=== PATIENT | female | born 1995 | race Caucasian/White ===

== ENCOUNTER 2021-04-04 07:01 | Emergency (ER) | payer OTHER, MEDICAID, SELFPAY ==
[2021-04-04 07:15] VITALS: BP 175/112; PULSE 119; RESP 18; O2SAT 99
--- NOTE | 2021-04-04 07:51 | ED_ITS ---
HPI - Psych General Chief Complaint: Psychiatric Symptoms Stated Complaint: mental health problem Time Seen by Provider: 04/04/21 07:36 Source: patient and other (Boyfriend) Mode of arrival: Ambulatory History of Present Illness HPI Narrative: This is a 26-year-old female who presents with her boyfriend for concern for mental health issues. Patient has difficulty expressing herself with somewhat tangential speech, she is able to speak clearly but has difficulty straightening her thoughts together. Patient does not have any slurring. Her boyfriend states that she had an episode knee about a week ago which she endorses and at that time she started to become more and more up and down in terms of her moods. She can be very high or very low with crying jags. Patient does not endorse any suicidal thought or intention or any homicidal thoughts. Boyfriend states she has had very pressured racing speech. He states she has been telling him to look into her eyes and very focused on internal combustion as well as if she may be . He states that many of her statements do not make sense. He does not believe she slept for the last 2 or 3 these. Patient states she is unsure if she has had any sleep but does not think so. She uses tobacco, she used to use alcohol heavily but quit past and had a relapse about 2 months ago but according to her and her boyfriend is not actively using at this time. She uses marijuana but they both deny any other recreational drugs. Patient does take trazodone for sleep she is unsure if she has taken it recently. She may have taken 1 of her boyfriend's Seroquel but unclear if she h as she is unsure if she may or may not have. Patient according to her and her boyfriend have not had similar symptoms like this in the past. She has had anxiety but no other mental health diagnoses. She does not have any other known medical issues. Patient is agreeable to tried medication to see if this is helpful to her. Related Data Allergies Allergy/AdvReac Type Severity Reaction Status Date / Time No Known Drug Allergies Allergy Verified 04/04/21 09:42 Review of Systems Review of Systems ROS Unobtainable: All systems reviewed & are unremarkable except as noted in HPI and below Patient History Social History Smoking Status: Current every day smoker additional social history: SUBSTANCE USE HISTORY - Tobacco: Daily smoker - Alcohol: The patient's mother reports a history of alcohol abuse in the past, recent history is unclear - Drugs: The patient to be does apparently have a past history of use of ecstasy and mushrooms when she was an adolescent, or in her early 20s, but patient, mother, and boyfriend all deny that she currently uses any drugs except for marijuana. DEVELOPMENTAL AND SOCIAL HISTORY - Family Constellation/Environment: Patient was [place] in this region and patient's mother notes a generally unremarkable childhood. - Childhood Trauma: No apparent history of physical or sexual abuse or witnessing violence. - Developmental milestones: The patient reached normal developmental milestones. - Education: The patient was an adequate student in school and graduated from high school. - Employment: The patient has been employed regularly in the last several years and was recently changing jobs. - Relationships: Patient has been in a long-term relationship with her current boyfriend - Current Living: Patient her boyfriend currently live on [facility]. - Support: Income from employment. - Legal: No current legal difficulties. HISTORY - None. - Deployments: N/A - Combat Exposure: N/A - Blast Exposure: N/A SIGNIFICANT MEDICAL HISTORY PCP: Unknown - Allergies: NKDA - Medical Problems: None known - Current Medications: See list above. - Herbals/Supplements: None. Smoking Status: Current every day smoker Substance Use Type: marijuana Exam Narrative Exam Narrative: GEN: well nourished, well appearing female, alert and oriented, patient appears to be in mild distress. Patient laughs inappropriate times. She does attempt to answer questions but has difficulty. Cooperative. HEENT: Atraumatic, pupils are equal round reactive to light, extraocular movements are intact, nares are clear, throat is clear without any exudates, erythema, tonsillar enlargement or uvular deviation, no facial droop. HEART: Regular rate and rhythm without murmur, clicks, rubs. Pulses are equal in upper and lower extremities LUNGS:Lungs clear to auscultation, no wheezes, rales, crackles, chest moves symmetrically ABD:bowel sounds normal, soft, non-tender, no guarding, rebound, rigidity, no masses noted, no hepatosplenomegaly :No CVA tenderness MSCL: Non-tender, no muscle atrophy, muscles strength 5/5 upper and lower extremities, full range of motion NEURO:CN 2-12 intact, sensation normal, reflexes 2/4 upper and lower extremitie s. Normal gait. No dysarthria. SKIN: Rash, erythema or other skin changes noted. PSYCH: Patient does not endorse any suicidal homicidal ideation. She denies hallucinations although her boyfriend does state that she has at times will stare intently at lytes. Both patient and state that she had a recent hip knee, that she has had pressure speech as well as very high and very low mood intermittently and describes it as cycling very quickly over minutes. Initial Vital Signs Initial Vital Signs: Vital Signs Pulse Rate 119 H 04/04/21 07:15 Respiratory Rate 18 04/04/21 07:15 Blood Pressure 175/112 H 04/04/21 07:15 Pulse Oximetry 99 04/04/21 07:15 Course Orders Ordered: ED Orders 04/04/21 13:47 COVID19 -Nasal swab/Pre-Proc Stat Discontinued Medications Nicotine (Nicotine 21 Mg Patch) 21 mg TOP NOW ONE Stop: 04/04/21 10:50 Last Admin: 04/04/21 10:56 Dose: 21 mg Documented by: RAMYA Olanzapine (Olanzapine Odt 10 Mg Tab) 10 mg PO NOW ONE Stop: 04/04/21 08:40 Last Admin: 04/04/21 08:47 Dose: 10 mg Documented by: RAMYA Olanzapine (Olanzapine Odt 10 Mg Tab) 10 mg PO NOW ONE Stop: 04/04/21 12:57 Last Admin: 04/04/21 13:34 Dose: 10 mg Documented by: FAB Olanzapine (Olanzapine Odt 10 Mg Tab) 10 mg PO NOW ONE Stop: 04/04/21 15:01 Last Admin: 04/04/21 15:08 Dose: 10 mg Documented by: FAB Reevaluation(s) Reevaluation #1: Patient somewhat improved speech is more fluent but she still having considered symptoms we did review her head CT and lab work today with her as well as her boyfriend who is at bedside. Time: 10:50 Reevaluation #2: patient seen by Dr. Blake from psychiatry and agree patient needs hospitalization for bipolar. He recommends trying an additional dose of zyprexa, patient did not take the first two but after discussion with patient she took the third and swallowed it. Patient has tried to leave but unclear if she has intentionally trying to leave or is disoriented. She has been mostly redirectable. Family at bedside particularly her boyfriend helps to keep the patient calm. Time: 15:03 Vital Signs Vital signs: Vital Signs - 8 hr 04/04/21 17:45 Pulse Rate 126 H Respiratory Rate 19 Blood Pressure 143/102 H Pulse Oximetry 97 MDM - Psych Lab Data Attestation: I reviewed the patient's lab results. Result diagrams: 04/04/21 08:12 04/04/21 08:12 Labs: Lab Results 04/04/21 04/04/21 04/04/21 Range/Units 07:30 08:12 08:12 WBC 9.7 (4.5-11.0) X10^3/uL RBC 4.44 (4.0-5.2) X10^6/uL Hgb 14.2 (12.0-16.0) g/dL Hct 41.7 (36-46) % MCV 93.9 (80-100) fL MCH 32.1 (26-34) PG MCHC 34.1 (30-36) % RDW 12.7 (11.6-14.8) % Plt Count 307 (150-400) X10^3/uL Neut % (Auto) 67.5 (50-75) % Lymph % (Auto) 20.6 L (25-40) % [place] % (Auto) 9.8 (3-14) % Eos % (Auto) 1.2 L (2-4) % Baso % (Auto) 0.9 (0-2) % Neut # (Auto) 6500 (5934-1731) /uL Lymph # (Auto) 2000 (0802-2465) /uL [place] # (Auto) 900 (0-900) /uL Eos # (Auto) 100 (0-450) /uL Baso # (Auto) 100 (0-100) /uL Sodium 137 (137-145) mmol/L Potassium 3.7 (3.4-5.1) mmol/L Chloride 102 (98-107) mmol/L Carbon Dioxide 24 (22-32) mmol/L BUN 7 (7-17) mg/dL Creatinine 0.56 (0.52-1.04) mg/dL Estimated GFR > 60.0 (>60) mL/min BUN/Creatinine Ratio 12.5 (6-22) Glucose 108 H (70-100) mg/dL Calcium 10.2 (8.4-10.2) mg/dL Total Bilirubin 0.5 (0.2-1.3) mg/dL AST 27 (14-36) IU/L ALT 17 (<35) IU/L Alkaline Phosphatase 73 (38-126) U/L Total Protein 8.7 H (6.3-8.2) g/dL Albumin 5.1 H (3.5-5.0) g/dL Globulin 3.6 (1.7-4.1) g/dL Albumin/Globulin Ratio 1.4 (1.0-2.8) TSH (0.47-4.68) uIU/mL Salicylates < 1.0 (<20) mg/dL U Opiates 300ng/mL cut Negative (Negative) Ur Oxycodone Screen Negative (Negative) Urine Methadone Screen Negative (Negative) Acetaminophen < 10 L (10-30) ug/mL Ur Barbiturates Screen Negative (Negative) U Tricyclic Antidepress Positive H (Negative) Ur Phencyclidine Scrn Negative (Negative) Ur Amphetamines Screen Negative (Negative) U Methamphetamines Scrn Negative (Negative) Ur MDMA Scrn (Ecstasy) Negative (Negative) U Benzodiazepines Scrn Negative (Negative) Urine Cocaine Screen Negative (Negative) U Marijuana (THC) Screen Positive H (Negative) Ethyl Alcohol < 10 ( - 10) mg/dL SARS-CoV-2 (PCR) (Negative) 04/04/21 04/04/21 Range/Units 08:12 13:47 WBC (4.5-11.0) X10^3/uL RBC (4.0-5.2) X10^6/uL Hgb (12.0-16.0) g/dL Hct (36-46) % MCV (80-100) fL MCH (26-34) PG MCHC (30-36) % RDW (11.6-14.8) % Plt Count (150-400) X10^3/uL Neut % (Auto) (50-75) % Lymph % (Auto) (25-40) % [place] % (Auto) (3-14) % Eos % (Auto) (2-4) % Baso % (Auto) (0-2) % Neut # (Auto) (5660-9455) /uL Lymph # (Auto) (5847-4910) /uL [place] # (Auto) (0-900) /uL Eos # (Auto) (0-450) /uL Baso # (Auto) (0-100) /uL Sodium (137-145) mmol/L Potassium (3.4-5.1) mmol/L Chloride (98-107) mmol/L Carbon Dioxide (22-32) mmol/L BUN (7-17) mg/dL Creatinine (0.52-1.04) mg/dL Estimated GFR (>60) mL/min BUN/Creatinine Ratio (6-22) Glucose (70-100) mg/dL Calcium (8.4-10.2) mg/dL Total Bilirubin (0.2-1.3) mg/dL AST (14-36) IU/L ALT (<35) IU/L Alkaline Phosphatase (38-126) U/L Total Protein (6.3-8.2) g/dL Albumin (3.5-5.0) g/dL Globulin (1.7-4.1) g/dL Albumin/Globulin Ratio (1.0-2.8) TSH 1.51 (0.47-4.68) uIU/mL Salicylates (<20) mg/dL U Opiates 300ng/mL cut (Negative) Ur Oxycodone Screen (Negative) Urine Methadone Screen (Negative) Acetaminophen (10-30) ug/mL Ur Barbiturates Screen (Negative) U Tricyclic Antidepress (Negative) Ur Phencyclidine Scrn (Negative) Ur Amphetamines Screen (Negative) U Methamphetamines Scrn (Negative) Ur MDMA Scrn (Ecstasy) (Negative) U Benzodiazepines Scrn (Negative) Urine Cocaine Screen (Negative) U Marijuana (THC) Screen (Negative) Ethyl Alcohol ( - 10) mg/dL SARS-CoV-2 (PCR) Negative (Negative) Point of Care Testing Test Results Negative Urine Dip Bedside Urine Glucose Negative Bedside Urine Bilirubin - Negative Bedside Urine Ketone +++ 80 Urine Specific [place] 1.030 Bedside Urine Occult Blood +/- Bedside Urine pH 6.0 Bedside Urine Protein +/- 15 Bedside Urine Urobilinogen - Negative Bedside Urine Nitrite - Negative Bedside Urine Leukocytes - Negative Esterase Imaging Data CT scan - head: Radiologist's Impression: [address] [id number] Scan ReportSigned Patient: Zohreh StreetR#: [id number]: 1995Acct:[id number]/Sex: 26 / FDate of Service: 04/04/21Loc: EDAccession Number: [id number] Procedure: CT head/brain wo con Ordering Provider: Giovanna Suttno D.O. PROCEDURE: CT HEAD/BRAIN WO CON INDICATIONS: new onset bipolar type symptoms, no sleep TECHNIQUE: Noncontrast 4.5 mm thick angled axial sections acquired from the foramen magnum to the vertex, with coronal and sagittal reformats. For radiation dose reduction, the following was used: automated exposure control, adjustment of mA and/or kV according to patient size. COMPARISON: None. FINDINGS: Image quality: Excellent. CSF spaces: Basal cisterns are patent. No extra-axial fluid collections. Ventricles are normal in size and shape. Brain: No midline shift. No intracranial masses or hemorrhage. Marie-white matter interface is normal. Skull and face: Calvarium and visualized facial bones are intact, without suspicious lesions. Sinuses: Visualized sinuses and mastoids are clear. IMPRESSION: 1. No acute intracranial abnormalities. Dictated by: Haroldo Miller M.D. on 04/04/2021 at 8:56 Approved by: Haroldo Miller M.D. on 04/04/2021 at 8:58 [facility] Narrative Medical decision making narrative: 26-year-old female with seems to be in acutely psychotic episode. Patient has not had a prior history. Head CT was obtained because of this which was negative. Patient's labs do not show acute changes. Her UDS is positive for trace sick lips which is consistent with her history of trazodone. And THC. Patient does have a history of anxiety but no other known mental health diagnoses. She appears to be gravely disabled and was evaluated by our psychosocial rehabilitation counselor, Dr. Blake from outpatient psychiatry and the DCR who felt patient was appropriate for placement. Patient did ultimately taken oral Zyprexa, she had spit out the initial doses. She has been redirectable during her stay here in the emergency department. Patient signed out to Dr. Gomez while awaiting final disposition. Discharge Plan Departure Clinical Impression: Acute psychosis
[2021-04-04 07:54] LABS: UR Morphine/Opiate cutoff 300 Negative (Negative); Ur Creatinine Normal (Normal); Ur Specific Gravity Normal (Normal); Urine Amphetamines Negative (Negative); Urine Barbiturates Negative (Negative); Urine Benzodiazepines Negative (Negative); Urine Cocaine Negative (Negative); Urine MDMA Negative (Negative); Urine Methadone Negative (Negative); Urine Methamphetamines Negative (Negative); Urine Phencyclidine Negative (Negative); Urine Tetrahydrocannabinol Positive (Negative); Urine pH Normal (Normal)
[2021-04-04 07:55] LABS: Urine Oxycodone Negative (Negative); Urine Tricyclic Antidepressant Positive (Negative)
[2021-04-04 08:19] LABS: Add Manual Diff / Slide Review NO; Basophils Absolute Auto 100 /uL (0-100); Basophils Percent Auto 0.9 % (0-2); Eosinophils Absolute Auto 100 /uL (0-450); Eosinophils Percent Auto 1.2 % (2-4); Hematocrit 41.7 % (36-46); Hemoglobin 14.2 g/dL (12.0-16.0); Lymphocytes Absolute Auto 2000 /uL (1100-4500); Lymphocytes Percent Auto 20.6 % (25-40); Mean Corpuscular HGB Conc 34.1 % (30-36); Mean Corpuscular Hemoglobin 32.1 PG (26-34); Mean Corpuscular Volume 93.9 fL (80-100); Monocytes Absolute Auto 900 /uL (0-900); Monocytes Percent Auto 9.8 % (3-14); Neutrophils Absolute Auto 6500 /uL (1500-7000); Neutrophils Percent Auto 67.5 % (50-75); Platelet Count 307 X10^3/uL (150-400); Red Blood Cell Count 4.44 X10^6/uL (4.0-5.2); Red Cell Distribution Width 12.7 % (11.6-14.8); White Blood Cell Count 9.7 X10^3/uL (4.5-11.0)
[2021-04-04 08:33] LABS: Acetaminophen < 10 ug/mL (10-30); Alanine Aminotransferase 17 IU/L (<35); Albumin 5.1 g/dL (3.5-5.0); Albumin Globulin Ratio 1.4 (1.0-2.8); Alkaline Phosphatase 73 U/L (38-126); Aspartate Aminotransferase 27 IU/L (14-36); BUN Creatinine Ratio 12.5 (6-22); Bilirubin Total 0.5 mg/dL (0.2-1.3); Blood Urea Nitrogen 7 mg/dL (7-17); Calcium 10.2 mg/dL (8.4-10.2); Carbon Dioxide 24 mmol/L (22-32); Chloride 102 mmol/L (98-107); Estimated Glomerular Filt Rate > 60.0 mL/min (>60); Ethanol (ETOH) < 10 mg/dL; Globulin 3.6 g/dL (1.7-4.1); Glucose 108 mg/dL (70-100); HEMOLYSIS < 15 (0-50); Potassium 3.7 mmol/L (3.4-5.1); Salicylate < 1.0 mg/dL (<20); Sodium 137 mmol/L (137-145); Total Protein 8.7 g/dL (6.3-8.2)
--- NOTE | 2021-04-04 08:33 | DI.CT.S_ITS ---
PROCEDURE: CT HEAD/BRAIN WO CON INDICATIONS: new onset bipolar type symptoms, no sleep TECHNIQUE: Noncontrast 4.5 mm thick angled axial sections acquired from the foramen magnum to the vertex, with coronal and sagittal reformats. For radiation dose reduction, the following was used: automated exposure control, adjustment of mA and/or kV according to patient size. COMPARISON: None. FINDINGS: Image quality: Excellent. CSF spaces: Basal cisterns are patent. No extra-axial fluid collections. Ventricles are normal in size and shape. Brain: No midline shift. No intracranial masses or hemorrhage. Marie-white matter interface is normal. Skull and face: Calvarium and visualized facial bones are intact, without suspicious lesions. Sinuses: Visualized sinuses and mastoids are clear. IMPRESSION: 1. No acute intracranial abnormalities. Dictated by: Haroldo Miller M.D. on 04/04/2021 at 8:56 Approved by: Haroldo Miller M.D. on 04/04/2021 at 8:58
[2021-04-04] MEDS: OLANZapine ODT 10 MG TAB PO ×3 (08:47→15:08)
[2021-04-04 09:18] LABS: TSH w/ Reflex to FT4 1.51 uIU/mL (0.47-4.68)
[2021-04-04] MEDS: NICOTINE 21 MG PATCH TOP (10:56)
--- NOTE | 2021-04-04 12:34 | CM.SWNOTE ---
COOKER TENDER Assessment COOKER TENDER - Steel Erector Assessment COOKER TENDER - Steel Erector Assessment Time Spent with Patient Start date 04/04/21 Visit Start Time 11:35 End date 04/04/21 Visit End Time 12:00 Total time Care Management spent on 25 patient visit-in minutes Mental Health Screening Include Onset, Duration, Intensity Presenting Problem Patient presents to this ED brought in by timmyiend due to his concerns for patient's mental health. Patient states she is here because she thinks she is , needs and wants to be . Precipitating Event(s) Patient states no memory of recent events. Boyfriend states that patient has been off for 4-5 days stating that she said she had an epiphany and states that she is not sleeping, always on the phone, high on life and not making sense. Boyfriend states that last night patient wet the bed and spiraled out of control, switching from sobbing to laughing. Boyfriend states that patient asked boyfriend to look into her eyes or she would spontaneously combust. Patient Strengths Patient is receptive to supports Current Behavioral Health Provider(s) Patient denies any current MH Include Facility, Provider, Ph. # providers but would like them eventually. Psych. Hx Mental Health and Chemical Patient has no hx of MH dx. Dependency Patient smokes tobacco, patient used to use alcohol heavily and relapsed 2 months ago but denies current use. Patient positive for THC and tricyclic Antidepressants at presentation to this ED. Family Hx of Behavioral Abuse None reported Psychiatric Hospitalizations (date(s)/ None reported location) Psychosocial information & Support Patient is 26 y/o female who Systems currently resides on [facility]. Patient has support of mother and boyfriend. Boyfriend reports that patient quit her job a few weeks ago and they recently moved from [place]. School/Work Patient is currently employed Legal Concerns Legal Matters - Outstanding Issues None reported Mental Status Orientation (Person/Place/Time) A/Ox 4 in mild distress Stated Mood fine Affect (Congruent with Mood?) euphoric, labile, congruent with mood Thought Content - Specify/Describe Patient denies obsessions, Obsessions, Delusions, Hallucinations delusions and hallucinations. Boyfriend reports patient has been obsessing about calling people during the night hours and thinking she will spontaneously combust Thought Processes (Forsvcq-Xbnvagte-Kplj Tangential Untcscvj-Ckgglyvc-Lyrqimgmti- Zdspadguweergf-Anozvzn-Pdovezigvhmz- Thought Blocking) Speech (Hxlhlv-Xjpv-Annriwq-Rapid-Soft- Slow, quiet, pressured Loud-Pressured) Motor (Lfqbwb-Kbukznmbs-Qira-Other) Not formally assessed. Patient has both arms under blanket and has limited movement. Insight (Lgpa-Dwbp-Lwau/Limited) Poor/Limited Judgement (Tfyu-Rhgg-Yyuc/Limited) Poor/Limited Impulse Control (Adequate-Impaired) Adequate during assessment, poor per boyfriend's report regarding last evening. Memory (Spxzixlge-Lezmor-Oyznba, Impaired, patient cannot Impaired-Intact) recall why boyfriend brought patient to this ED. Concentration (Intact-Impaired) Somewhat intact Attention (Intact-Impaired) Somewhat intact Behavior (Appropriate-Inappropriate) Appropriate. Patient would laugh at times throughout interview when boyfriend was present and not make sense. Risk Assessment Suicidal Ideation (Plan) No Homicidal Ideation (Plan) No Comment Patient denies SI and HI. Intervention Intervention COOKER TENDER meets with patient. Patient states she is present at this ED due to her wanting, needing and thoughts of supposed to being . Boyfriend later presents to room and states that patient is present to this ED due to concern for mental health and altered mental state. Boyfriend reports patient's recent behavior of sobbing then laughing and labile moods . Boyfriend endorses that this behavior started about 5 days ago when patient was in a state of tika had an epiphany and was high on life. When COOKER TENDER asks patient about what boyfriend reported, patient does not recall and states colors got misunderstood. COOKER TENDER discusses inpatient hospitalization with patient and boyfriend. Patient is agreeable to voluntary inpatient. It is the opinion of this COOKER TENDER that patient is gravely disabled and is in need of inpatient behavioral health hospitalization. COOKER TENDER reviews the above with ED provider Dr. Sutton and she indicates agreement and understanding. COOKER TENDER discusses consult with Psychiatry and Dr. Sutton is in agreement. Plan RA Plan COOKER TENDER to seek inpatient beds when patient is medically stable. COOKIE [place]
--- NOTE | 2021-04-04 13:40 | PC.NURSE ---
Pt spit out Zyprexa. notified.
[2021-04-04 14:04] LABS: COVID19 -Nasal RAPID Negative (Negative)
--- NOTE | 2021-04-04 14:09 | PC.NURSE ---
pt was being aggressive pt tried to push her Mother and pt said to her (dont touch me) pt tried to get my attention for help. I went to the room and talked to the pt and tried to calm pt down.
--- NOTE | 2021-04-04 14:13 | PC.NURSE ---
14:13 pt drank water and spit it out jumped on the bed at the same time. Went to the room and asks whats going on pt came to me hysterically, hold my hands and said help me. I asked the pt again whats going on,pt said (are they poisoning me?
--- NOTE | 2021-04-04 14:38 | PC.NURSE ---
MD Blake in room with patient. Trying to get ahold of pt mom to let her know.
--- NOTE | 2021-04-04 15:27 | PC.NURSE ---
Pt upset while talking with MD Blake with Mom present in room. [place] her saying can someone help me in here? Two RNs in room to talk with pt and attempt to calm. MD Blake and Mom stepped out to continue talking in hallway. Pt states do you understand Sydnie and Gray are one person?? We are connected on a level not of this world. Reassured pt she was safe at the hospital and we are here to help. Significant other Gray showed up and pt became much more calm. Able to talk with pt and administer Zyprexa with him in room. Pt swallowed pill without issue. She talked with Gray/stated, Well I spit out the other two. I couldn't stop myself. Mom stepped out to get food for her from the cafeteria.
--- NOTE | 2021-04-04 16:05 | PC.NURSE ---
at 1400 pt was walking to the restroom and when she got in front of the door she stepped back quickly, then started walking backwards, the door to the main lobato (out of the ED) opened and she ran out. she only go about 10ft when her mother caught her and brought her back in. the pt seemed calm and followed her moms directions. 1415 pt asked me to come in the room, I did, i sat near the bed, she leaned up and whispered will you put your finger in my vagina and check for blood i said no, she then said i'm worried about the baby i reminded her that she is not . about 1430 Dr Blake was at bedside.
--- NOTE | 2021-04-04 16:15 | CM.SWNOTE ---
Addendum entered by Toyin Watkins 04/04/21 18:39: Psychiatrist Dr. Blake completed Psychiatry consult report with dx of Bipolar - most recent episode manic with psychotic features. Dr. Blake recommends DCR evaluation for involuntary hold and pyschiatric admission and rx of olanzapine 5-10 mg b.i.d to address psychotic and manic symptoms. Prior to meeting with DCR patient was not oriented as to why she was at the hospital, what was going and thought her mother was the devil or her boyfriend's mother. Patient was given 10 mg of Olanzapine at 15:08 and RN witnessed patient take medication, previously at 8:47 and 13:34, patient spit out medication. Patient met with JSOEF Brown via video at about 1800 for evaluation, also present is patient's mother. Patient presents as lucid and communicative but confused about what took place today and why she presents at this hospital. DCR recommends patient be prescribed Olanzapine for a week at d/c from hospital, patient seek outpatient services and family to monitor patient's safety and return patient to ED if symptoms worsen. RAILROAD CAR LETTERER calls and leaves for Psychiatrist Dr. Blake regarding f/u with patient, requesting return call. RAILROAD CAR LETTERER will identify providers that take patient's insurance and provide to patient and mother. Plan: patient to d/c with outpatient support, family safety planning and rx. Toyin Watkins, COOKIE Original Note: RAILROAD CAR LETTERER Note RAILROAD CAR LETTERER calls [facility] and they will review clinicals for voluntary inpatient. At 1335 RAILROAD CAR LETTERER meets with patient's mother Srinivas, mother reports these behaviors and symptoms have been occuring her whole life. Mother is thankful for inpatient treatment for patient and for Psych eval. Per RN Kristen, Patient is paranoid, concerns for being watching, patient spit out zyprexa medication twice. [facility] asks to speak with patient, patient denies and [place] reports they will not accept patient voluntarily but would accept patient involuntary due to patient's labile mood, tangential communication and disorganized thoughts RAILROAD CAR LETTERER contacts [facility] for dispatch, Dr. Blake meets with patient. Dr. Blake recommends DCR, ziprexa medication and determines bipolar dx. discusses patient with patient's partner and mother. Mother reports that patient is not eating what she is served at hospital and plans to get patient some thing like mashed potatoes that she would eat. Plan: f/u with [facility] dispatch for involuntary inpatient at [facility] COOKIE [place]
--- NOTE | 2021-04-04 16:17 | P.CONS_ITS ---
History of Present Illness Consult details Date Patient Seen: 04/04/21 Time Patient Seen: 14:30 Chief complaint: mental health problem Reason for consult: Disorganized behavior Requesting provider: Giovanna Sutton Narrative: REFERRAL INFORMATION This is the first psychiatric evaluation for this 26-year-old female referred by the emergency department for evaluation of possible bipolar disorder. RECORDS REVIEW The patient?s referral documents, medical records and intake questionnaire were reviewed as part of this evaluation. I also spoke with the patient's mother and the patient's boyfriend who provided collateral information. CHIEF COMPLAINT ?I think Gray broke my brain.? HISTORY OF PRESENT ILLNESS The patient was in her usual state of fairly good health until about for 5 days ago when she began to have difficulty with fairly significant work stress related to stopping 1 job in starting another 1. Her boyfriend reports that she became very anxious about her situation at work and then began to have difficulty sleeping to the point that she may have been awake all night for the last 2-3 nights. During this time, she also became more agitated, initiated increase in goal-directed behavior, and after awhile had difficulty making sense when she spoke. He became concerned after she once again failed to sleep last night and early this morning became bizarrely incoherent. He brought her into the emergency department for further evaluation and treatment. The patient is unable to articulate a coherent chief complaint or history. She claims that she is and that she wants, ?a doctor to show me blood on their finger? in order to prove to her that she is not . She is not receptive to the fact that blood tests and examination revealed that she is not . She cannot coherently relate any history about the last several days and any attempts to get any kind of past history resulting in responses that are bizarre and make no sense. At 1 point, the patient attempted to leave the [facility] department and needed to be physically redirected to go back to the [facility] and her bed. She speaks with intensity to various staff members. She does not appear to be responding to hallucinations, but at times it appears that she is having difficulty articulating numerous thoughts running through her head. The patient's mother also reports that she has not been eating recently and may have lost weight. The patient, her mother, and her boyfriend all deny that she has been using any sort of drugs recently. The patient denies any suicidal ideation, intent, or plan. The patient denies any homicidal ideation, intent, or plan. The patient cannot respond coherently to questions regarding specific symptoms of depression, anxiety, psychosis, tika, or PTSD or recent history of trauma. PAST PSYCHIATRIC HISTORY - Diagnoses: No prior psychiatric history - Inpatient: None. - Outpatient: None. - Suicide Attempts: None. PREVIOUS PSYCHIATRIC MEDICATION TRIALS The patient has no prior history of psychotropic medication treatment. CURRENT PSYCHOTROPIC MEDICATIONS May have taken 1 dose of boyfriend's quetiapine prescription but is currently taking no psychotropic medications. FAMILY HISTORY - Maternal: None known - Paternal: May have a history of depression and possible bipolar disorder in extended relatives - Siblings: None known Meds Home Medications and Allergies Allergies Allergy/AdvReac Type Severity Reaction Status Date / Time No Known Drug Allergies Allergy Verified 04/04/21 09:42 Review of Systems Review of Systems ROS: Yes unobtainable due to mental condition Psychiatric Psychiatric: Reports as per HPI Exam Vital Signs (past 8 hours): Oxygen Delivery Method Room Air Narrative Exam Narrative: MENTAL STATUS EXAM * Appearance: Patient is very slender female seen initially reclining in her gurney in her room in the emergency department. * Grooming: The patient is dressed in casual clothing and appears mildly disheveled but otherwise adequately groomed. * Behavior: The patient is somewhat agitated and easily upset. She became markedly more agitated when her mother into the room and we attempted to obtain history from her. * Gait: Gait was unimpaired when the patient got up and attempted to walk out of the emergency department. * Speech: Normal rate, volume, and westley for the most part, but became quite agitated and loud when upset. * Mood: ?I am broken? * Affect: Intense, often agitated, moderately dysphoric. Congruent with content, restricted range and affect. * Thought Process: Extremely tangential * Thought Content: Denies suicidal ideation, denies homicidal ideation, intent or plan; and thee was no evidence of a formal thought or perceptual distur bance. * Attention: Nominally attentive to interview, and extremely distractible * Orientation: Oriented to person, place, time, and circumstance * Memory: Unable to be tested * Insight: Poor * Judgment: Poor Objective Labs Result Diagrams: 04/04/21 08:12 04/04/21 08:12 Labs: Laboratory Results - last 24 hr 04/04/21 04/04/21 04/04/21 07:30 08:12 08:12 WBC 9.7 RBC 4.44 Hgb 14.2 Hct 41.7 MCV 93.9 MCH 32.1 MCHC 34.1 RDW 12.7 Plt Count 307 Neut % (Auto) 67.5 Lymph % (Auto) 20.6 L Garrett % (Auto) 9.8 Eos % (Auto) 1.2 L Baso % (Auto) 0.9 Neut # (Auto) 6500 Lymph # (Auto) 2000 Garrett # (Auto) 900 Eos # (Auto) 100 Baso # (Auto) 100 Sodium 137 Potassium 3.7 Chloride 102 Carbon Dioxide 24 BUN 7 Creatinine 0.56 Estimated GFR > 60.0 BUN/Creatinine Ratio 12.5 Glucose 108 H Calcium 10.2 Total Bilirubin 0.5 AST 27 ALT 17 Alkaline Phosphatase 73 Total Protein 8.7 H Albumin 5.1 H Globulin 3.6 Albumin/Globulin Ratio 1.4 TSH Salicylates < 1.0 U Opiates 300ng/mL cut Negative Ur Oxycodone Screen Negative Urine Methadone Screen Negative Acetaminophen < 10 L Ur Barbiturates Screen Negative U Tricyclic Antidepress Positive H Ur Phencyclidine Scrn Negative Ur Amphetamines Screen Negative U Methamphetamines Scrn Negative Ur MDMA Scrn (Ecstasy) Negative U Benzodiazepines Scrn Negative Urine Cocaine Screen Negative U Marijuana (THC) Screen Positive H Ethyl Alcohol < 10 SARS-CoV-2 (PCR) 04/04/21 04/04/21 08:12 13:47 WBC RBC Hgb Hct MCV MCH MCHC RDW Plt Count Neut % (Auto) Lymph % (Auto) Garrett % (Auto) Eos % (Auto) Baso % (Auto) Neut # (Auto) Lymph # (Auto) Garrett # (Auto) Eos # (Auto) Baso # (Auto) Sodium Potassium Chloride Carbon Dioxide BUN Creatinine Estimated GFR BUN/Creatinine Ratio Glucose Calcium Total Bilirubin AST ALT Alkaline Phosphatase Total Protein Albumin Globulin Albumin/Globulin Ratio TSH 1.51 Salicylates U Opiates 300ng/mL cut Ur Oxycodone Screen Urine Methadone Screen Acetaminophen Ur Barbiturates Screen U Tricyclic Antidepress Ur Phencyclidine Scrn Ur Amphetamines Screen U Methamphetamines Scrn Ur MDMA Scrn (Ecstasy) U Benzodiazepines Scrn Urine Cocaine Screen U Marijuana (THC) Screen Ethyl Alcohol SARS-CoV-2 (PCR) Negative Assessment & Plan Assessment and plan (1) Bipolar disorder: Qualifiers: Active/Remission status: currently active Current bipolar episode type: manic Current episode severity: severe Psychotic features: with psychotic features Qualified Code(s): F31.2 - Bipolar disorder, current episode manic severe with psychotic features Status: Acute Assessment & Plan narrative: ASSESSMENT/MEDICAL DECISION MAKING Zohreh Street is a 26-year-old female who presented to the emergency department after 4-5 days of decreased sleep, increasing goal-directed activity, bizarre delusions, possible racing thoughts, inability to articulate thoughts coherently, inappropriate poor judgment, and distractibility. And unknown substance intoxication and 1st psychotic break are also in the differential, but in the absence of any positive drug screen (other than marijuana) the patient's presentation appears to be consistent with a manic episode. DIAGNOSES/PROBLEMS Bipolar disorder most recent episode manic with psychotic features Recommendations 1. Given the patient's delusion that she is and may be experiencing a miscarriage, I am concerned about possible delusion driven self-injurious behavior. Therefore, I recommend the DCR be notified to evaluate the patient for an involuntary hold and psychiatric admission. 2. Recommend olanzapine 5-10 mg p.o. b.i.d. targeting psychotic and manic symptoms. Time Spent With Patient Time with patient: Greater than 35 minutes
--- NOTE | 2021-04-04 16:43 | PC.NURSE ---
Pt. was unaware of location or who she was, am I my boyfriend? Did his mind take over mine?. Mom had left for coffee.
[2021-04-04 17:45] VITALS: BP 143/102; PULSE 126; RESP 19; O2SAT 97
--- NOTE | 2021-04-04 18:50 | ED.PSYCH ---
HPI - Psych General Chief Complaint: Psychiatric Symptoms Stated Complaint: mental health problem Time Seen by Provider: 04/04/21 07:36 Source: patient and other (Boyfriend) Mode of arrival: Ambulatory Related Data Previous Rx's Medication Instructions Recorded olanzapine [Zyprexa] 5 mg PO QPM #10 tab 04/04/21 Allergies Allergy/AdvReac Type Severity Reaction Status Date / Time No Known Drug Allergies Allergy Verified 04/04/21 09:42 Patient History Family History (Updated 04/04/21 @ 19:26 by Jayna Martinez RN) Family/Other Bipolar 1 disorder, depressed Social History Smoking Status: Current every day smoker additional social history: SUBSTANCE USE HISTORY - Tobacco: Daily smoker - Alcohol: The patient's mother reports a history of alcohol abuse in the past, recent history is unclear - Drugs: The patient to be does apparently have a past history of use of ecstasy and mushrooms when she was an adolescent, or in her early 20s, but patient, mother, and boyfriend all deny that she currently uses any drugs except for marijuana. DEVELOPMENTAL AND SOCIAL HISTORY - Family Constellation/Environment: Patient was [place] in [place] region and patient's mother notes a generally unremarkable childhood. - Childhood Trauma: No apparent history of physical or sexual abuse or witnessing violence. - Developmental milestones: The patient reached normal developmental milestones. - Education: The patient was an adequate student in school and graduated from high school. - Employment: The patient has been employed regularly in the last several years and was recently changing jobs. - Relationships: Patient has been in a long-term relationship with her current boyfriend - Current Living: Patient her boyfriend currently live on [facility]. - Support: Income from employment. - Legal: No current legal difficulties. HISTORY - None. - Deployments: N/A - Combat Exposure: N/A - Blast Exposure: N/A SIGNIFICANT MEDICAL HISTORY PCP: Unknown - Allergies: NKDA - Medical Problems: None known - Current Medications: See list above. - Herbals/Supplements: None. Smoking Status: Current every day smoker Substance Use Type: marijuana Exam Initial Vital Signs Initial Vital Signs: Vital Signs Pulse Rate 119 H 04/04/21 07:15 Respiratory Rate 18 04/04/21 07:15 Blood Pressure 175/112 H 04/04/21 07:15 Pulse Oximetry 99 04/04/21 07:15 Course Orders Ordered: Discontinued Medications Nicotine (Nicotine 21 Mg Patch) 21 mg TOP NOW ONE Stop: 04/04/21 10:50 Last Admin: 04/04/21 10:56 Dose: 21 mg Documented by: RAMYA Olanzapine (Olanzapine Odt 10 Mg Tab) 10 mg PO NOW ONE Stop: 04/04/21 08:40 Last Admin: 04/04/21 08:47 Dose: 10 mg Documented by: RAMYA Olanzapine (Olanzapine Odt 10 Mg Tab) 10 mg PO NOW ONE Stop: 04/04/21 12:57 Last Admin: 04/04/21 13:34 Dose: 10 mg Documented by: FAB Olanzapine (Olanzapine Odt 10 Mg Tab) 10 mg PO NOW ONE Stop: 04/04/21 15:01 Last Admin: 04/04/21 15:08 Dose: 10 mg Documented by: AFB Vital Signs Vital signs: Vital Signs - 8 hr 04/04/21 17:45 Pulse Rate 126 H Respiratory Rate 19 Blood Pressure 143/102 H Pulse Oximetry 97 MDM - Psych Lab Data Result diagrams: 04/04/21 08:12 04/04/21 08:12 Labs: Lab Results 04/04/21 04/04/21 04/04/21 Range/Units 07:30 08:12 08:12 WBC 9.7 (4.5-11.0) X10^3/uL RBC 4.44 (4.0-5.2) X10^6/uL Hgb 14.2 (12.0-16.0) g/dL Hct 41.7 (36-46) % MCV 93.9 (80-100) fL MCH 32.1 (26-34) PG MCHC 34.1 (30-36) % RDW 12.7 (11.6-14.8) % Plt Count 307 (150-400) X10^3/uL Neut % (Auto) 67.5 (50-75) % Lymph % (Auto) 20.6 L (25-40) % Glascock % (Auto) 9.8 (3-14) % Eos % (Auto) 1.2 L (2-4) % Baso % (Auto) 0.9 (0-2) % Neut # (Auto) 6500 (8785-8367) /uL Lymph # (Auto) 2000 (6463-9189) /uL Glascock # (Auto) 900 (0-900) /uL Eos # (Auto) 100 (0-450) /uL Baso # (Auto) 100 (0-100) /uL Sodium 137 (137-145) mmol/L Potassium 3.7 (3.4-5.1) mmol/L Chloride 102 (98-107) mmol/L Carbon Dioxide 24 (22-32) mmol/L BUN 7 (7-17) mg/dL Creatinine 0.56 (0.52-1.04) mg/dL Estimated GFR > 60.0 (>60) mL/min BUN/Creatinine Ratio 12.5 (6-22) Glucose 108 H (70-100) mg/dL Calcium 10.2 (8.4-10.2) mg/dL Total Bilirubin 0.5 (0.2-1.3) mg/dL AST 27 (14-36) IU/L ALT 17 (<35) IU/L Alkaline Phosphatase 73 (38-126) U/L Total Protein 8.7 H (6.3-8.2) g/dL Albumin 5.1 H (3.5-5.0) g/dL Globulin 3.6 (1.7-4.1) g/dL Albumin/Globulin Ratio 1.4 (1.0-2.8) TSH (0.47-4.68) uIU/mL Salicylates < 1.0 (<20) mg/dL U Opiates 300ng/mL cut Negative (Negative) Ur Oxycodone Screen Negative (Negative) Urine Methadone Screen Negative (Negative) Acetaminophen < 10 L (10-30) ug/mL Ur Barbiturates Screen Negative (Negative) U Tricyclic Antidepress Positive H (Negative) Ur Phencyclidine Scrn Negative (Negative) Ur Amphetamines Screen Negative (Negative) U Methamphetamines Scrn Negative (Negative) Ur MDMA Scrn (Ecstasy) Negative (Negative) U Benzodiazepines Scrn Negative (Negative) Urine Cocaine Screen Negative (Negative) U Marijuana (THC) Screen Positive H (Negative) Ethyl Alcohol < 10 ( - 10) mg/dL SARS-CoV-2 (PCR) (Negative) 04/04/21 04/04/21 Range/Units 08:12 13:47 WBC (4.5-11.0) X10^3/uL RBC (4.0-5.2) X10^6/uL Hgb (12.0-16.0) g/dL Hct (36-46) % MCV (80-100) fL MCH (26-34) PG MCHC (30-36) % RDW (11.6-14.8) % Plt Count (150-400) X10^3/uL Neut % (Auto) (50-75) % Lymph % (Auto) (25-40) % Glascock % (Auto) (3-14) % Eos % (Auto) (2-4) % Baso % (Auto) (0-2) % Neut # (Auto) (3170-6262) /uL Lymph # (Auto) (0569-9613) /uL Glascock # (Auto) (0-900) /uL Eos # (Auto) (0-450) /uL Baso # (Auto) (0-100) /uL Sodium (137-145) mmol/L Potassium (3.4-5.1) mmol/L Chloride (98-107) mmol/L Carbon Dioxide (22-32) mmol/L BUN (7-17) mg/dL Creatinine (0.52-1.04) mg/dL Estimated GFR (>60) mL/min BUN/Creatinine Ratio (6-22) Glucose (70-100) mg/dL Calcium (8.4-10.2) mg/dL Total Bilirubin (0.2-1.3) mg/dL AST (14-36) IU/L ALT (<35) IU/L Alkaline Phosphatase (38-126) U/L Total Protein (6.3-8.2) g/dL Albumin (3.5-5.0) g/dL Globulin (1.7-4.1) g/dL Albumin/Globulin Ratio (1.0-2.8) TSH 1.51 (0.47-4.68) uIU/mL Salicylates (<20) mg/dL U Opiates 300ng/mL cut (Negative) Ur Oxycodone Screen (Negative) Urine Methadone Screen (Negative) Acetaminophen (10-30) ug/mL Ur Barbiturates Screen (Negative) U Tricyclic Antidepress (Negative) Ur Phencyclidine Scrn (Negative) Ur Amphetamines Screen (Negative) U Methamphetamines Scrn (Negative) Ur MDMA Scrn (Ecstasy) (Negative) U Benzodiazepines Scrn (Negative) Urine Cocaine Screen (Negative) U Marijuana (THC) Screen (Negative) Ethyl Alcohol ( - 10) mg/dL SARS-CoV-2 (PCR) Negative (Negative) Point of Care Testing Test Results Negative Urine Dip Bedside Urine Glucose Negative Bedside Urine Bilirubin - Negative Bedside Urine Ketone +++ 80 Urine Specific Tyner 1.030 Bedside Urine Occult Blood +/- Bedside Urine pH 6.0 Bedside Urine Protein +/- 15 Bedside Urine Urobilinogen - Negative Bedside Urine Nitrite - Negative Bedside Urine Leukocytes - Negative Esterase Discharge Plan Departure Patient Disposition: Home Clinical Impression: Acute psychosis Instructions: DI for Bipolar Disorder Activity Restrictions/Additional Instructions: Follow up with the resources given to you by social work for treatment. Call in the morning for follow up appointment. You may call [phone] if you are having difficulty finding a provider to follow up. You need to take medication daily and this needs to be continued fdc. If patient is refusing to take medication she needs to return for re-evaluation. Prescription to [facility] in [place]. If you're feeling suicidal or having suicidal thoughts, contact the suicide hotline (this is the referral and resource for [facility] which can help with follow-up). . Please return for thoughts of harming yourself or others, altered mental status, hallucinations, altered mental status, recurrence of symptoms similar to earlier today if you feel the patient is unsafe to themselves or others or they seem to be inappropriate to make decisions for them cells. Prescriptions: New olanzapine [Zyprexa] 5 mg tablet 5 mg PO QPM Qty: 10 RF: 0
--- NOTE | 2021-04-04 18:59 | PC.NURSE ---
After taking a nap pt was much more alert. DCR able to talk with pt over tablet for assessment. Mom at bedside and supportive to pt. Social work also in to talk with pt/mom about plan for D/C.
--- NOTE | 2021-04-04 19:37 | PC.NURSE ---
PT awake and alert. Reports she is feeling ready to go. Mom updated pt that pt would need to stay at her house because last ferry leaving soon. Pt agreeable and states I feel good with this plan. Pt ambulated out of ED with her mom.
[2021-04-04 19:39] VITALS: BP 132/90; PULSE 99; RESP 22; O2SAT 99
== END 2021-04-04 19:41 | disposition home or self-care (01) ==
PROVIDERS: Emergency Provider Emergency Medicine
DX: F31.2 Bipolar disorder, current episode manic severe with psychotic features (principal)
CPT/HCPCS: 36415; 70450; 80053; 80305; 80320; 80329; 81003; 81025; 84443; 85025; 87635; 99284; 99285; C9803; G0480

== ENCOUNTER 2021-09-30 21:00 | Emergency (ER) | payer OTHER, MEDICAID, SELFPAY ==
[2021-09-30] VITALS (10 sets, daily range): BP systolic 124–146; BP diastolic 60–99; PULSE 94–122; RESP 13–33; TEMP 36.6–37.1; O2SAT 96–99; BMI 20.5
[2021-09-30] MEDS: ONDANSETRON 4 MG/2 ML INJ IV (21:10)
[2021-09-30] MEDS: SODIUM CHLORIDE 0.9% 1,000 ML 1000 ML IV (21:49)
[2021-09-30] MEDS: PANTOPRAZOLE 40 MG VIAL IV (21:50)
[2021-09-30 21:54] LABS: Alanine Aminotransferase 28 IU/L (<35); Albumin 5.3 g/dL (3.5-5.0); Albumin Globulin Ratio 1.3 (1.0-2.8); Alkaline Phosphatase 91 U/L (38-126); Aspartate Aminotransferase 42 IU/L (14-36); BUN Creatinine Ratio 21.9 (6-22); Bilirubin Total 0.6 mg/dL (0.2-1.3); Blood Urea Nitrogen 16 mg/dL (7-17); Calcium 10.3 mg/dL (8.4-10.2); Carbon Dioxide 26 mmol/L (22-32); Chloride 95 mmol/L (98-107); Estimated Glomerular Filt Rate > 60.0 mL/min (>60); Glucose 147 mg/dL (70-100); HEMOLYSIS < 15 (0-50); Lipase 68 U/L (23-300); Potassium 3.2 mmol/L (3.4-5.1); Sodium 140 mmol/L (137-145); Total Protein 9.3 g/dL (6.3-8.2)
--- NOTE | 2021-09-30 21:56 | PC.NURSE ---
pt medicated per orders and IVF infusing. Vomiting and headache improved. pt resting comfortably on stretcher. Call franz in reach
[2021-09-30 22:00] LABS: Add Manual Diff / Slide Review NO; Basophils Absolute Auto 100 /uL (0-100); Basophils Percent Auto 0.5 % (0-2); Eosinophils Absolute Auto 0 /uL (0-450); Eosinophils Percent Auto 0.1 % (2-4); Hematocrit 45.2 % (36-46); Hemoglobin 15.6 g/dL (12.0-16.0); Lymphocytes Absolute Auto 2100 /uL (1100-4500); Lymphocytes Percent Auto 11.4 % (25-40); Mean Corpuscular HGB Conc 34.6 % (30-36); Mean Corpuscular Hemoglobin 31.8 PG (26-34); Mean Corpuscular Volume 92.1 fL (80-100); Monocytes Absolute Auto 1100 /uL (0-900); Monocytes Percent Auto 6.1 % (3-14); Neutrophils Absolute Auto 15400 /uL (1500-7000); Neutrophils Percent Auto 81.9 % (50-75); Platelet Count 506 X10^3/uL (150-400); Red Blood Cell Count 4.91 X10^6/uL (4.0-5.2); Red Cell Distribution Width 12.3 % (11.6-14.8); White Blood Cell Count 18.8 X10^3/uL (4.5-11.0)
--- NOTE | 2021-09-30 22:21 | ED_ITS ---
HPI - Nausea/Vomiting/Diarrhea General Chief complaint: Nausea/Vomiting/Diarrhea Stated complaint: Nausea/Vomiting Time Seen by Provider: 09/30/21 21:35 Source: patient Mode of arrival: Ambulatory Limitations: no limitations History of Present Illness HPI Narrative: Patient is a 26-year-old female with history of alcohol abuse presenting today with nausea vomiting abdominal pain. She says she has actually cut back on her alcohol quite a bit and only drinks a few times a week she did drink last night. She felt nauseous this morning thought it was due to drinking last night however she continued to vomit numerous times and have some abdominal discomfort. No diarrhea no fever or chills. No one else is sick. She says that she what has been prescribed Antabuse but is not taking it. Related Data Previous Rx's Medication Instructions Recorded olanzapine 5 mg tablet (Zyprexa) 5 mg PO QPM #10 tab 04/04/21 ondansetron 4 mg disintegrating 4 mg PO Q8H PRN #10 tab 09/30/21 tablet Allergies Allergy/AdvReac Type Severity Reaction Status Date / Time No Known Drug Allergies Allergy Verified 04/04/21 09:42 Review of Systems Review of Systems Narrative: GENERAL: Denies chills, fatigue, malaise, fever, sweats, travel HEENT: Denies sinus pain, ear pain, sore throat, difficulty swallowing, neck pain RESPIRATORY: Denies dyspnea, cough, wheezing, hemoptysis, sputum. CARDIOVASCULAR: Denies chest pain, palpitations, orthopnea, edema GASTROINTESTINAL: See HPI : Denies dysuria, frequency, incontinence, hematuria, urinary retention, flank pain. MUSCULOSKELETAL: Denies weakness, joint pain, or bony pain SKIN: No rash, no erythema, no pruritus NEUROLOGIC: Denies weakness, dizziness, headache, numbness, change in speech, confusion PSYCHIATRIC: No concerning psychosocial issues. 12 point review of systems is negative except for those stated above and HPI Patient History Family History (Updated 04/04/21 @ 19:26 by Jayna Martinez RN) Family/Other Bipolar 1 disorder, depressed Social History Smoking Status: Current every day smoker additional social history: SUBSTANCE USE HISTORY - Tobacco: Daily smoker - Alcohol: The patient's mother reports a history of alcohol abuse in the past, recent history is unclear - Drugs: The patient to be does apparently have a past history of use of ecstasy and mushrooms when she was an adolescent, or in her early 20s, but patient, mother, and boyfriend all deny that she currently uses any drugs except for marijuana. DEVELOPMENTAL AND SOCIAL HISTORY - Family Constellation/Environment: Patient was born and raised in this region and patient's mother notes a generally unremarkable childhood. - Childhood Trauma: No apparent history of physical or sexual abuse or witnessing violence. - Developmental milestones: The patient reached normal developmental milestones. - Education: The patient was an adequate student in school and graduated from high school. - Employment: The patient has been employed regularly in the last several years and was recently changing jobs. - Relationships: Patient has been in a long-term relationship with her current boyfriend - Current Living: Patient her boyfriend currently live on [facility]. - Support: Income from employment. - Legal: No current legal difficulties. HISTORY - None. - Deployments: N/A - Combat Exposure: N/A - Blast Exposure: N/A SIGNIFICANT MEDICAL HISTORY PCP: Unknown - Allergies: NKDA - Medical Problems: None known - Current Medications: See list above. - Herbals/Supplements: None. Smoking Status: Current every day smoker tobacco type: cigarettes alcohol intake frequency: a few times a month Substance Use Type: marijuana Exam Initial Vital Signs Initial Vital Signs: Vital Signs Temperature 97.8 F 09/30/21 21:03 Pulse Rate 122 H 09/30/21 21:03 Respiratory Rate 20 09/30/21 21:03 Blood Pressure 146/99 H 09/30/21 21:03 Pulse Oximetry 99 09/30/21 21:03 GENERAL: Alert 26-year-old female and in no acute distress. HEENT: Head atraumatic,EOMI, pupils reactive, face symmetric, moist mucous membranes CARDIOVASCULAR: Regular rate and rhythm without murmurs, rubs or gallops. RESPIRATORY: Breath sounds equal bilaterally, no wheezes rales or rhonchi. ABDOMEN: Soft, nontender. Normoactive bowel sounds all 4 quadrants. No guarding or rebound. EXTREMITIES: Normal range of motion, no clubbing or edema. Neurovascularly intact NEUROLOGICAL: Alert and oriented x4.Normal gait and speech. SKIN: Warm, dry, no laceration, no petechiae, no rashes or lesions. Course Orders Ordered: ED Orders 09/30/21 21:15 Complete Blood Count AUTO DIFF Stat Comprehensive Metabolic Panel Stat Lipase Stat 09/30/21 23:00 Urine Microscopic Stat Discontinued Medications Sodium Chloride (Normal Saline 0.9%) 1,000 mls @ 1,000 mls/hr IV CONT ZEKE Last Infusion: 09/30/21 22:50 Dose: 1,000 mls/hr Documented by: Admin: 09/30/21 21:49 Dose: 1,000 mls/hr Documented by: BENNY Ondansetron HCl (Ondansetron 4 Mg/2 Ml Inj) 4 mg IV NOW ONE Stop: 09/30/21 21:07 Last Admin: 09/30/21 21:10 Dose: 4 mg Documented by: FAB Ondansetron HCl (Ondansetron 4 Mg Odt Prepack) 1 bottle MISC SEEINSTR ONE Stop: 09/30/21 23:55 Last Admin: 09/30/21 23:59 Dose: 1 bottle Documented by: BENNY Pantoprazole Sodium (Pantoprazole 40 Mg Vial) 40 mg IV NOW ONE Stop: 09/30/21 21:37 Last Admin: 09/30/21 21:50 Dose: 40 mg Documented by: BENNY Potassium Chloride (Potassium Chloride 20 Meq Tab) 40 meq PO NOW ONE Stop: 09/30/21 22:29 Last Admin: 09/30/21 22:49 Dose: 40 meq Documented by: BENNY Vital Signs Vital signs: Vital Signs - 8 hr 09/30/21 21:03 09/30/21 21:19 09/30/21 21:30 Temperature 97.8 F Pulse Rate 122 H 106 H 98 H Respiratory Rate 20 Blood Pressure 146/99 H Pulse Oximetry 99 99 99 09/30/21 22:00 09/30/21 22:31 09/30/21 22:45 Temperature Pulse Rate 94 H 102 H 103 H Respiratory Rate 21 23 Blood Pressure 144/86 H Pulse Oximetry 97 98 99 09/30/21 23:00 09/30/21 23:30 09/30/21 23:49 Temperature Pulse Rate 101 H 104 H 101 H Respiratory Rate 13 33 H 21 Blood Pressure 124/78 Pulse Oximetry 98 97 96 09/30/21 23:54 Temperature 98.7 F Pulse Rate 100 H Respiratory Rate 18 Blood Pressure 124/60 Pulse Oximetry 97 MDM - Nausea/Vomiting/Diarrhea Lab Data Result diagrams: 09/30/21 21:15 09/30/21 21:15 Labs: Lab Results 09/30/21 09/30/21 09/30/21 Range/Units 21:15 21:15 23:00 WBC 18.8 H (4.5-11.0) X10^3/uL RBC 4.91 (4.0-5.2) X10^6/uL Hgb 15.6 (12.0-16.0) g/dL Hct 45.2 (36-46) % MCV 92.1 (80-100) fL MCH 31.8 (26-34) PG MCHC 34.6 (30-36) % RDW 12.3 (11.6-14.8) % Plt Count 506 H (150-400) X10^3/uL Neut % (Auto) 81.9 H (50-75) % Lymph % (Auto) 11.4 L (25-40) % [place] % (Auto) 6.1 (3-14) % Eos % (Auto) 0.1 L (2-4) % Baso % (Auto) 0.5 (0-2) % Neut # (Auto) 41181 H (8755-0835) /uL Lymph # (Auto) 2100 (6127-2273) /uL [place] # (Auto) 1100 H (0-900) /uL Eos # (Auto) 0 (0-450) /uL Baso # (Auto) 100 (0-100) /uL Sodium 140 (137-145) mmol/L Potassium 3.2 L (3.4-5.1) mmol/L Chloride 95 L (98-107) mmol/L Carbon Dioxide 26 (22-32) mmol/L BUN 16 (7-17) mg/dL Creatinine 0.73 (0.52-1.04) mg/dL Estimated GFR > 60.0 (>60) mL/min BUN/Creatinine Ratio 21.9 (6-22) Glucose 147 H (70-100) mg/dL Calcium 10.3 H (8.4-10.2) mg/dL Total Bilirubin 0.6 (0.2-1.3) mg/dL AST 42 H (14-36) IU/L ALT 28 (<35) IU/L Alkaline Phosphatase 91 (38-126) U/L Total Protein 9.3 H (6.3-8.2) g/dL Albumin 5.3 H (3.5-5.0) g/dL Globulin 4.0 (1.7-4.1) g/dL Albumin/Globulin Ratio 1.3 (1.0-2.8) Lipase 68 (23-300) U/L Urine RBC 0-1/hpf (0-5/HPF) Urine WBC 0-1/hpf (0-5/HPF) Ur Squamous Epith Cells >30 /hpf H (0-5/HPF) Calcium Oxalate Crystal Occasional H Urine Bacteria Many (>30) H (None) Ur Culture Indicated? Cult not indicated Point of Care Testing Test Results Negative Urine Dip Bedside Urine Glucose Negative Bedside Urine Bilirubin - Negative Bedside Urine Ketone ++ 40 Urine Specific [place] 1.020 Bedside Urine Occult Blood - Negative Bedside Urine pH 6.5 Bedside Urine Protein ++ 100 Bedside Urine Urobilinogen - Negative Bedside Urine Nitrite - Negative Bedside Urine Leukocytes - Negative Esterase MDM Narrative Medical decision making narrative: Patient has been unable to hold down anything today. No fever or diarrhea she is found to have hypokalemia with potassium of 3.2. She is feeling significantly better after IV fluids Zofran and Protonix. She is now even tolerating oral fluids. She has had leukocytosis of the T been no fever further infection I suspect probably stress induced from vomiting. No evidence of pancreatitis or other abdominal etiology this time. Recommend outpatient follow-up. He is instructed on oral rehydration. All questions have been addressed. Discharge Plan Departure Patient Disposition: Home Clinical Impression: Hypokalemia, Gastroenteritis Instructions: DI for Viral Gastroenteritis -- Adult, Nausea and Vomiting-Adult Activity Restrictions/Additional Instructions: 1) You have been diagnosed with possible viral syndrome 2) What to do: Drink frequent but small amounts of fluids. I recommend Gatorade or a Gatorade-like product, as it has small amounts of sugar and salts that improve fluid retention. 3) Take medications as directed Zofran 4 mg every 8 hours if needed for nausea vomiting--> [facility] 4) Follow up with your primary care provider in 2-3 days [and follow up with o rtho, urology etc] 5) Return to ER if you should have any new or worsening symptoms such as, unable to hold down fluids despite use of anti-nausea medications and the small volume oral rehydration strategy. Prescriptions: New ondansetron 4 mg tablet,disintegrating 4 mg PO Q8H PRN (Reason: nausea and vomiting) Qty: 10 RF: 0 No Action olanzapine [Zyprexa] 5 mg tablet 5 mg PO QPM Qty: 10 RF: 0
[2021-09-30] MEDS: POTASSIUM CHLORIDE 20 MEQ TAB 40 MEQ PO (22:49)
[2021-09-30 23:15] LABS: Bacteria Urine Many (>30); Calcium Oxalate Crystals Urine Occasional; RBC Urine 0-1/HPF (0-5/HPF); Squamous Epithelial Cell Urine >30 /HPF (0-5/HPF)
[2021-09-30 23:16] LABS: Culture Indicated Urine Cult Not Indicated; WBC Urine 0-1/HPF (0-5/HPF)
[2021-09-30] MEDS: ONDANSETRON 4 MG ODT PREPACK 1 BOTTLE MISC (23:59)
== END 2021-10-01 | disposition home or self-care (01) ==
PROVIDERS: Emergency Provider Emergency Medicine
DX: K52.9 Noninfective gastroenteritis and colitis, unspecified (principal); E87.6 Hypokalemia
CPT/HCPCS: 36415; 80053; 81003; 81015; 81025; 83690; 85025; 96361; 96374; 96375; 99284; C9113; J2405

== ENCOUNTER → 2023-02-05 12:43 | Outpatient (CLI) | payer OTHER, MEDICAID, SELFPAY ==
[2023-02-05 13:42] LABS: Influenza A - CEPHEID Flu A NEGATIVE (NEGATIVE); Influenza B - CEPHEID Flu B NEGATIVE (NEGATIVE); Respiratory Syncytial Virus Negative (Negative)
[2023-02-05 13:43] LABS: COVID-19 CEPHEID 4-PLEX PCR Negative (Negative)
== END ==
PROVIDERS: Visit Provider Physician Assistant
DX: R05.9 Cough, unspecified (principal); Z20.822 Contact with and (suspected) exposure to COVID-19
CPT/HCPCS: 0241U

== ENCOUNTER 2023-04-01 06:57 | Emergency (ER) | payer OTHER, MEDICAID, SELFPAY ==
[2023-04-01] VITALS (8 sets, daily range): BP systolic 119–152; BP diastolic 63–111; PULSE 93–152; RESP 18; TEMP 36.5; O2SAT 96–99; BMI 24.0
--- NOTE | 2023-04-01 07:30 | ED.NAVMDI ---
HPI - Nausea/Vomiting/Diarrhea General Chief complaint: Nausea/Vomiting/Diarrhea Stated complaint: throwing up Time Seen by Provider: 04/01/23 07:09 Source: patient Mode of arrival: Ambulatory Limitations: no limitations History of Present Illness HPI Narrative: Patient is a 28-year-old female who is here for evaluation of abdominal pain and vomiting. States the symptoms started last evening at approximately 0900 hours. She states this happens when she ?drinks too much? and she admits that she ?drank too much? yesterday. Has not tried anything for the symptoms prior to arrival. Related Data Home Medications Medication Instructions Recorded Confirmed gabapentin PO 06/14/22 08/20/22 Previous Rx's Medication Instructions Recorded olanzapine 5 mg tablet (Zyprexa) 5 mg PO QPM #10 tabs 04/04/21 albuterol sulfate 90 mcg/actuation 2 puff inhalation Q4-6H PRN 02/05/23 aerosol inhaler shortness of breath or wheezing #6.7 grams benzonatate 100 mg capsule 100 mg PO TID PRN cough #20 caps 02/05/23 ondansetron 4 mg disintegrating 4 mg PO Q6H PRN nausea and 04/01/23 tablet vomiting #14 tabs Allergies Allergy/AdvReac Type Severity Reaction Status Date / Time No Known Drug Allergies Allergy Verified 08/20/22 14:12 Review of Systems Constitutional Constitutional: Reports system reviewed and no additional complaints, except as documented Cardiovascular Cardiovascular: Reports system reviewed and no additional complaints, except as documented Respiratory Respiratory: Reports system reviewed and no additional complaints, except as documented Gastrointestinal Gastrointestinal: Reports system reviewed and no additional complaints, except as documented Integumentary/Breasts Skin/Breast: Reports system reviewed and no additional complaints, except as documented Patient History Family History Family/Other Bipolar 1 disorder, depressed Social History Smoking Status: Current every day smoker additional social history: SUBSTANCE USE HISTORY - Tobacco: Daily smoker - Alcohol: The patient's mother reports a history of alcohol abuse in the past, recent history is unclear - Drugs: The patient to be does apparently have a past history of use of ecstasy and mushrooms when she was an adolescent, or in her early 20s, but patient, mother, and boyfriend all deny that she currently uses any drugs except for marijuana. DEVELOPMENTAL AND SOCIAL HISTORY - Family Constellation/Environment: Patient was born and raised in this region and patient's mother notes a generally unremarkable childhood. - Childhood Trauma: No apparent history of physical or sexual abuse or witnessing violence. - Developmental milestones: The patient reached normal developmental milestones. - Education: The patient was an adequate student in school and graduated from high school. - Employment: The patient has been employed regularly in the last several years and was recently changing jobs. - Relationships: Patient has been in a long-term relationship with her current boyfriend - Current Living: Patient her boyfriend currently live on [facility]. - Support: Income from employment. - Legal: No current legal difficulties. HISTORY - None. - Deployments: N/A - Combat Exposure: N/A - Blast Exposure: N/A SIGNIFICANT MEDICAL HISTORY PCP: Unknown - Allergies: NKDA - Medical Problems: None known - Current Medications: See list above. - Herbals/Supplements: None. Smoking Status: Current every day smoker tobacco type: cigarettes alcohol intake frequency: 0-2 drinks per day Substance Use Type: marijuana Exam Initial Vital Signs Initial Vital Signs: Vital Signs Temperature 97.7 F 04/01/23 07:00 Pulse Rate 136 H 04/01/23 07:00 Respiratory Rate 18 04/01/23 07:00 Blood Pressure 147/103 H 04/01/23 07:00 Pulse Oximetry 99 04/01/23 07:00 Oxygen Delivery Method Room Air 04/01/23 07:00 Const General: cooperative and No ill appearing HENMT Head: normal to inspection and normocephalic Resp Effort & Inspection: normal respiratory effort Auscultation: clear to auscultation bilaterally Cardio Rate: tachycardic Rhythm: regular rhythm GI Inspection: normal to inspection Palpation: soft, No firm and No tender Skin General: no rashes or lesions noted Neuro General: patient alert, patient awake and moves all extremities Cognition: normal cognition Extrem General: normal to inspection and capillary refill normal Course Orders Ordered: ED Orders 04/01/23 07:20 Complete Blood Count AUTO DIFF Stat Comprehensive Metabolic Panel Stat Lipase Stat 04/01/23 07:39 Urine Microscopic Stat 04/01/23 08:01 Consult to [facility] [place] - Chemistry Physics Teacher Stat Ondansetron HCl (Ondansetron 4 Mg Odt) 4 mg PO NOW PRN PRN Reason: Nausea And Vomiting Ondansetron HCl (Ondansetron 4 Mg/2 Ml Inj) 4 mg IV NOW PRN PRN Reason: Nausea And Vomiting Last Admin: 04/01/23 07:34 Dose: 4 mg Documented By: SHAMAR Discontinued Medications Sodium Chloride (Normal Saline 0.9%) 1,000 mls @ 1,000 mls/hr IV BOLUS ONE Stop: 04/01/23 08:09 Last Infusion: 04/01/23 08:35 Dose: 0 mls/hr Documented By: Admin: 04/01/23 07:34 Dose: 1,000 mls/hr Documented By: SHAMAR Pantoprazole Sodium (Pantoprazole 40 Mg Vial) 40 mg IV NOW ONE Stop: 04/01/23 07:12 Last Admin: 04/01/23 07:34 Dose: 40 mg Documented By: SHAMAR Vital Signs Vital signs: Vital Signs - 8 hr 04/01/23 07:00 04/01/23 07:06 04/01/23 07:30 Temperature 97.7 F Pulse Rate 136 H 152 H Respiratory Rate 18 Blood Pressure 147/103 H 152/111 H Pulse Oximetry 99 98 Oxygen Delivery Method Room Air 04/01/23 07:30 04/01/23 08:00 04/01/23 08:00 Temperature Pulse Rate 115 H 102 H Respiratory Rate Blood Pressure 131/76 Pulse Oximetry 98 96 Oxygen Delivery Method 04/01/23 08:16 04/01/23 08:30 04/01/23 08:30 Temperature Pulse Rate 93 H 94 H Respiratory Rate Blood Pressure 120/80 Pulse Oximetry 97 Oxygen Delivery Method 04/01/23 09:00 04/01/23 09:00 Temperature Pulse Rate 95 H Respiratory Rate Blood Pressure 119/63 Pulse Oximetry 97 Oxygen Delivery Method MDM - Nausea/Vomiting/Diarrhea Lab Data 04/01/23 07:20 04/01/23 07:20 Labs: Lab Results 04/01/23 04/01/23 04/01/23 Range/Units 07:20 07:20 07:39 WBC 15.6 H (4.5-11.0) X10^3/uL RBC 4.73 (4.0-5.2) X10^6/uL Hgb 14.4 (12.0-16.0) g/dL Hct 41.5 (36-46) % MCV 87.9 (80-100) fL MCH 30.5 (26-34) PG MCHC 34.7 (30-36) % RDW 14.3 (11.6-14.8) % Plt Count 446 H (150-400) X10^3/uL Neut % (Auto) 86.7 H (50-75) % Lymph % (Auto) 10.0 L (25-40) % [place] % (Auto) 2.9 L (3-14) % Eos % (Auto) 0.0 L (2-4) % Baso % (Auto) 0.4 (0-2) % Neut # (Auto) 58949 H (1597-6407) /uL Lymph # (Auto) 1600 (3120-4223) /uL [place] # (Auto) 400 (0-900) /uL Eos # (Auto) 0 (0-450) /uL Baso # (Auto) 100 (0-100) /uL Sodium 142 (137-145) mmol/L Potassium 3.2 L (3.4-5.1) mmol/L Chloride 100 (98-107) mmol/L Carbon Dioxide 27 (22-32) mmol/L BUN 11 (7-17) mg/dL Creatinine 0.71 (0.52-1.04) mg/dL Estimated GFR > 60 (>60) mL/min BUN/Creatinine Ratio 15.5 (6-22) Glucose 130 H (70-100) mg/dL Calcium 9.3 (8.4-10.2) mg/dL Total Bilirubin 0.5 (0.2-1.3) mg/dL AST 40 H (14-36) IU/L ALT 31 (<35) IU/L Alkaline Phosphatase 103 (38-126) U/L Total Protein 9.0 H (6.3-8.2) g/dL Albumin 5.1 H (3.5-5.0) g/dL Globulin 3.9 (1.7-4.1) g/dL Albumin/Globulin Ratio 1.3 (1.0-2.8) Lipase 95 (23-300) U/L Urine RBC 0-1/hpf (0-5/HPF) Urine WBC 0-1/hpf (0-5/HPF) Ur Squamous Epith Cells None seen D (0-5/HPF) Amorphous Sediment 1+ Urine Bacteria Occasional (0-1) (None) Ur Culture Indicated? Cult not indicated Point of Care Testing Test Results Negative Urine Dip Bedside Urine Glucose Negative Bedside Urine Bilirubin - Negative Bedside Urine Ketone + 15 Urine Specific [place] 1.005 Bedside Urine Occult Blood - Negative Bedside Urine pH 8.5 Bedside Urine Protein + 30 Bedside Urine Urobilinogen - Negative Bedside Urine Nitrite - Negative Bedside Urine Leukocytes - Negative Esterase MDM Narrative Medical decision making narrative: After medications here in the ER patient states she feels much better. Is tolerating oral intake. I do suspect that her presenting symptoms are related to the alcohol that she admitted drinking last evening. Will discharge patient home with nausea medication. Discharge Plan Departure Patient Disposition: Home Clinical Impression: Nausea and vomiting Instructions: Nausea and Vomiting-Adult Activity Restrictions/Additional Instructions: Continue to take all of your medications as directed. I do recommend that you increase your fluid intake by drinking small amounts more frequently. Use the nausea medication as needed. Return to the emergency department for new symptoms. Prescriptions: New ondansetron 4 mg tablet,disintegrating 4 mg PO Q6H PRN (Reason: nausea and vomiting) Qty: 14 0RF No Action gabapentin PO benzonatate 100 mg capsule 100 mg PO TID PRN (Reason: cough) Qty: 20 0RF albuterol sulfate 90 mcg/actuation HFA aerosol inhaler 2 puff inhalation Q4-6H PRN (Reason: shortness of breath or wheezing) Qty: 6.7 0RF olanzapine [Zyprexa] 5 mg tablet 5 mg PO QPM Qty: 10 0RF Referrals: Miscellaneous,Doctor, MD [Primary Care Provider] - Stand Alone Forms: Patient Portal/API
[2023-04-01] MEDS: SODIUM CHLORIDE 0.9% 1,000 ML 1000 ML IV (07:34)
[2023-04-01] MEDS: ONDANSETRON 4 MG/2 ML INJ IV (07:34)
[2023-04-01] MEDS: PANTOPRAZOLE 40 MG VIAL IV (07:34)
[2023-04-01 07:38] LABS: Add Manual Diff / Slide Review NO; Basophils Absolute Auto 100 /uL (0-100); Basophils Percent Auto 0.4 % (0-2); Eosinophils Absolute Auto 0 /uL (0-450); Hematocrit 41.5 % (36-46); Hemoglobin 14.4 g/dL (12.0-16.0); Lymphocytes Absolute Auto 1600 /uL (1100-4500); Mean Corpuscular HGB Conc 34.7 % (30-36); Mean Corpuscular Hemoglobin 30.5 PG (26-34); Mean Corpuscular Volume 87.9 fL (80-100); Monocytes Absolute Auto 400 /uL (0-900); Monocytes Percent Auto 2.9 % (3-14); Neutrophils Absolute Auto 13500 /uL (1500-7000); Neutrophils Percent Auto 86.7 % (50-75); Platelet Count 446 X10^3/uL (150-400); Red Blood Cell Count 4.73 X10^6/uL (4.0-5.2); Red Cell Distribution Width 14.3 % (11.6-14.8); White Blood Cell Count 15.6 X10^3/uL (4.5-11.0)
[2023-04-01 07:51] LABS: Alanine Aminotransferase 31 IU/L (<35); Albumin 5.1 g/dL (3.5-5.0); Albumin Globulin Ratio 1.3 (1.0-2.8); Alkaline Phosphatase 103 U/L (38-126); Aspartate Aminotransferase 40 IU/L (14-36); BUN Creatinine Ratio 15.5 (6-22); Bilirubin Total 0.5 mg/dL (0.2-1.3); Blood Urea Nitrogen 11 mg/dL (7-17); Calcium 9.3 mg/dL (8.4-10.2); Carbon Dioxide 27 mmol/L (22-32); Chloride 100 mmol/L (98-107); Estimated Glomerular Filt Rate > 60 mL/min (>60); Globulin 3.9 g/dL (1.7-4.1); Glucose 130 mg/dL (70-100); HEMOLYSIS 16 (0-50); Lipase 95 U/L (23-300); Potassium 3.2 mmol/L (3.4-5.1); Sodium 142 mmol/L (137-145)
--- NOTE | 2023-04-01 08:01 | PC.NURSE ---
Patient states she is an alcoholic, drinks beer and shots throughout the day. She is seeking assistance with detox, educated pt on resources and [employer] service, pt is interested. Pt has not done detox in the past.
[2023-04-01 08:11] LABS: Amorphous Sediment Urine 1+; Bacteria Urine Occasional (0-1); Culture Indicated Urine Cult Not Indicated; RBC Urine 0-1/HPF (0-5/HPF); Squamous Epithelial Cell Urine None Seen (0-5/HPF); WBC Urine 0-1/HPF (0-5/HPF)
--- NOTE | 2023-04-01 09:29 | PC.NURSE ---
Pt tolerating PO challenge. States relief of N/V.
--- NOTE | 2023-04-01 13:12 | CM.SWNOTE ---
ED SATELLITE DISH TECHNICIAN follow up note SATELLITE DISH TECHNICIAN receives consult regarding patient who presented to ED due to concerns for ETOH withdrawals. Patient showed interest in detox to RN, RN provided patient with detox resources. Patient was discharged upon medical clearance this morning by ED provider. No toxicology labs were collected. SATELLITE DISH TECHNICIAN calls patient and leaves requesting return call. DARIUS Salinas
== END 2023-04-01 09:51 | disposition home or self-care (01) ==
PROVIDERS: Emergency Provider Emergency Medicine
DX: R11.2 Nausea with vomiting, unspecified (principal); R00.0 Tachycardia, unspecified
CPT/HCPCS: 36415; 80053; 81003; 81015; 81025; 83690; 85025; 96361; 96374; 96375; 99284; C9113; J2405

== ENCOUNTER 2023-06-02 10:46 | Inpatient (IN) | payer OTHER, MEDICAID, SELFPAY ==
[2023-06-02] VITALS (53 sets, daily range): BP systolic 68–147; BP diastolic 37–103; PULSE 59–166; RESP 5–40; TEMP 36.2–36.8; O2SAT 93–100; BMI 23.1
--- NOTE | 2023-06-02 10:59 | ED_ITS ---
HPI - Nausea/Vomiting/Diarrhea General Chief complaint: Nausea/Vomiting/Diarrhea Stated complaint: high bp, vomiting per pt Time Seen by Provider: 06/02/23 10:59 Source: patient, RN notes reviewed and old records reviewed Mode of arrival: Ambulatory Limitations: no limitations History of Present Illness HPI Narrative: This is a 28-year-old female with history of alcohol abuse, bipolar disorder with complaint of nausea and vomiting and fast heart rate. Patient states she drank a lot of alcohol last night she does sometimes do this afterwards. She denies fevers, she has been well sweaty. She states she does have a headache, she denies chest pain, denies shortness of breath. She does have some abdominal pain, states she started throwing up today. She is not had any diarrhea constipation she is aware of. No dysuria urgency or frequency. No back or flank pain. She states she has had fast heart rate in the past when she is throwing up. No syncope. She takes Antabuse, trazodone, gabapentin and lamo trigine. She states this is for alcohol use, mood disorder, no seizure history. Patient denies any prior surgeries. She does use tobacco daily, she does drink regularly. She does use marijuana she did smoke this morning prior to arrival. She denies other recreational substances. Patient states she took her and abuse yesterday. She does state that she drinks most days. Related Data Home Medications Medication Instructions Recorded Confirmed disulfiram 250 mg tablet 500 mg PO DAILY 06/02/23 06/02/23 gabapentin 600 mg tablet 600 mg PO 3XD PRN insomnia 06/02/23 06/02/23 lamotrigine 25 mg tablet 50 mg PO DAILY 06/02/23 06/02/23 trazodone 100 mg tablet 200 mg PO ONCE PM PRN insomnia 06/02/23 06/02/23 Allergies Allergy/AdvReac Type Severity Reaction Status Date / Time No Known Drug Allergies Allergy Verified 08/20/22 14:12 Review of Systems Review of Systems ROS Unobtainable: All systems reviewed & are unremarkable except as noted in HPI and below Patient History Family History Family/Other Bipolar 1 disorder, depressed Social History household members: significant other Smoking Status: Current every day smoker alcohol intake: current additional social history: SUBSTANCE USE HISTORY - Tobacco: Daily smoker - Alcohol: The patient's mother reports a history of alcohol abuse in the past, recent history is unclear - Drugs: The patient to be does apparently have a past history of use of ecstasy and mushrooms when she was an adolescent, or in her early 20s, but patient, mother, and boyfriend all deny that she currently uses any drugs except for marijuana. DEVELOPMENTAL AND SOCIAL HISTORY - Family Constellation/Environment: Patient was [place] region and patient's mother notes a generally unremarkable childhood. - Childhood Trauma: No apparent history of physical or sexual abuse or wit nessing violence. - Developmental milestones: The patient reached normal developmental milestones. - Education: The patient was an adequate student in school and graduated from high school. - Employment: The patient has been employed regularly in the last several years and was recently changing jobs. - Relationships: Patient has been in a long-term relationship with her current boyfriend - Current Living: Patient her boyfriend currently live on [facility]. - Support: Income from employment. - Legal: No current legal difficulties. HISTORY - None. - Deployments: N/A - Combat Exposure: N/A - Blast Exposure: N/A SIGNIFICANT MEDICAL HISTORY PCP: Unknown - Allergies: NKDA - Medical Problems: None known - Current Medications: See list above. - Herbals/Supplements: None. Smoking Status: Current every day smoker tobacco type: cigarettes alcohol intake frequency: 0-2 drinks per day Substance Use Type: marijuana Exam Narrative Exam Narrative: GEN: well nourished, female, alert and oriented x 3, patient appears to be in moderate distress. No diaphoresis. HEENT: Atraumatic, pupils are equal round reactive to light, extraocular movements are intact, nares are clear, TMs are clear with no fluid, there is no conjunctival pallor. Throat is clear without any exudates, erythema, tonsillar enlargement or uvular deviation HEART: Tachycardic but regular rate and rhythm without murmur, clicks, rubs. Pulses are equal in upper and lower extremities LUNGS:Lungs clear to auscultation, no wheezes, rales, crackles, chest moves symmetrically, no tachypnea. No accessory muscle use. ABD:bowel sounds normal, soft, non-tender, no guarding, rebound, rigidity, no masses noted, no hepatosplenomegaly, nondistended. Patient is actively vomiting clear liquid been evaluated. :No CVA tenderness MSCL: Non-tender, no muscle atrophy, muscles strength 5/5 upper and lower ext remities, full range of motion, normal gait NEURO:CN 2-12 intact, sensation normal. SKIN: No rash, erythema or other skin changes. Initial Vital Signs Initial Vital Signs: Vital Signs Temperature 97.2 F L 06/02/23 10:50 Pulse Rate 166 H 06/02/23 10:50 Respiratory Rate 30 H 06/02/23 10:50 Blood Pressure 83/44 L 06/02/23 10:50 Pulse Oximetry 98 06/02/23 10:50 Oxygen Delivery Method Room Air 06/02/23 10:50 Course Orders Ordered: ED Orders 06/02/23 11:00 Complete Blood Count AUTO DIFF Stat Comprehensive Metabolic Panel Stat D Dimer Stat ETOH [Ethanol (ETOH)] Stat Lactate (Lactic Acid) Stat NT-proBNP (BNP-Adult 18+) Stat PTT Partial Thromboplastin Aric Stat Test Serum,Qual Stat Procalcitonin Stat Prothrombin Time INR Stat Troponin & CK Cardiac Panel Stat 06/02/23 11:02 XR chest 1V Stat 06/02/23 11:03 Urine Drug Screen, Rapid Stat 06/02/23 11:07 EKG-12 Lead Stat 06/02/23 11:23 Blood Culture Stat 06/02/23 11:40 Ketones (Beta-Hydroxybutyrate) Stat 06/02/23 11:45 CT abdomen pelvis w con Stat CT angio chest PE protocol Stat 06/02/23 12:05 VBG [Venous Blood Gas] Stat 06/02/23 12:11 Type and Screen Stat 06/02/23 13:30 BMP [Basic Metabolic Panel] Stat 06/02/23 15:30 Urinalysis and Microscopic Stat Enoxaparin Sodium (Enoxaparin 40 Mg/0.4 Ml Syringe) 40 mg SUBCUT DAILY ZEKE Folic Acid (Folic Acid 1 Mg Tablet) 1 mg PO DAILY ZEKE Gabapentin (Gabapentin 600 Mg Tablet) 600 mg PO TID PRN PRN Reason: anxiety/sleep Haloperidol (Haloperidol 5 Mg/Ml Vial) 2 mg IV Q4HR PRN PRN Reason: agitation Ceftriaxone Sodium 2,000 mg/ (Sodium Chloride) 100 mls @ 200 mls/hr IV Q24H [facility] Last Admin: 06/02/23 17:01 Dose: 200 mls/hr Documented By: MICHELE Lactated Ringer's (Lactated Ringers) 1,000 mls @ 100 mls/hr IV CONT [facility] Last Admin: 06/02/23 18:17 Dose: 100 mls/hr Documented By: MICHELE Lamotrigine (Lamotrigine 100 Mg Tablet) 50 mg PO DAILY [facility] Lorazepam (Lorazepam 2 Mg/Ml Inj) 0 mg IV CIWAPRN PRN; Protocol PRN Reason: Alcohol Withdrawal Lorazepam (Lorazepam 1 Mg Tablet) 0 mg PO CIWAPRN PRN; Protocol PRN Reason: Alcohol Withdrawal Multivitamins (Multivitamin 1 Tablet) 1 tab PO DAILY [facility] Home Med Storage 0 each PO PRN PRN PRN Reason: home med storage Ondansetron HCl (Ondansetron 4 Mg/2 Ml Inj) 4 mg IV Q4HR PRN PRN Reason: Nausea And Vomiting Pantoprazole Sodium (Pantoprazole 40 Mg Vial) 40 mg IV BID [facility] Thiamine HCl (Thiamine 100 Mg Tablet) 100 mg PO DAILY [facility] Stop: 06/06/23 09:01 Trazodone HCl (Trazodone 50 Mg Tablet) 200 mg PO BEDTIME PRN PRN Reason: insomnia Discontinued Medications Haloperidol (Haloperidol 5 Mg/Ml Vial) 5 mg IV NOW ONE Stop: 06/02/23 12:11 Last Admin: 06/02/23 12:13 Dose: 5 mg Documented By: ZO Sodium Chloride (Normal Saline 0.9%) 1,837.05 mls @ 612.35 mls/hr 30 ml/kg infuse over 3 hr (1837.05 ml) IV NOW ONE Stop: 06/02/23 14:01 Last Infusion: 06/02/23 14:21 Dose: 0 mls/hr Documented By: Admin: 06/02/23 11:07 Dose: 612.35 mls/hr Documented By: ZO POTASSIUM CHLORIDE IN WATER (Potassium Cl 10 Meq/100 Ml Martha) 10 meq in 100 mls @ 100 mls/hr IV Q1H [facility] Stop: 06/02/23 15:44 Last Admin: 06/02/23 17:07 Dose: 100 mls/hr Documented By: Infusion: 06/02/23 17:05 Dose: 100 mls/hr Documented By: Admin: 06/02/23 16:05 Dose: 100 mls/hr Documented By: Infusion: 06/02/23 15:22 Dose: 0 mls/hr Documented By: Admin: 06/02/23 14:19 Dose: 100 mls/hr Documented By: Infusion: 06/02/23 13:03 Dose: 0 mls/hr Documented By: Admin: 06/02/23 11:56 Dose: 100 mls/hr Documented By: ZO Lactated Ringer's (Lactated Ringers) 1,000 mls @ 1,000 mls/hr IV BOLUS ONE Stop: 06/02/23 15:09 Last Infusion: 06/02/23 15:57 Dose: 0 mls/hr Documented By: Admin: 06/02/23 14:19 Dose: 1,000 mls/hr Documented By: HA POTASSIUM CHLORIDE IN WATER (Potassium Cl 10 Meq/100 Ml Martha) 10 meq in 100 mls @ 100 mls/hr IV Q1H [facility] Stop: 06/02/23 18:14 Last Admin: 06/02/23 18:25 Dose: 100 mls/hr Documented By: MICHELE Lorazepam (Lorazepam 2 Mg/Ml Inj) 0.5 mg IV NOW ONE Stop: 06/02/23 11:48 Lorazepam (Lorazepam 2 Mg/Ml Inj) 1 mg IV NOW ONE Stop: 06/02/23 11:49 Last Admin: 06/02/23 11:56 Dose: 1 mg Documented By: ZO Ondansetron HCl (Ondansetron 4 Mg/2 Ml Inj) 4 mg IV NOW ONE Stop: 06/02/23 11:03 Last Admin: 06/02/23 11:06 Dose: 4 mg Documented By: ZO Pantoprazole Sodium (Pantoprazole 40 Mg Vial) 80 mg IV NOW ONE Stop: 06/02/23 11:55 Last Admin: 06/02/23 11:59 Dose: 80 mg Documented By: ZO Vital Signs Vital signs: Vital Signs - 8 hr 06/02/23 11:43 06/02/23 11:43 06/02/23 11:45 Pulse Rate 118 H 122 H Respiratory Rate 26 H 30 H Blood Pressure 77/41 L Pulse Oximetry 97 99 Oxygen Delivery Method 06/02/23 11:45 06/02/23 11:50 06/02/23 11:50 Pulse Rate 143 H Respiratory Rate 29 H Blood Pressure 71/37 L 73/42 L Pulse Oximetry 98 Oxygen Delivery Method 06/02/23 11:55 06/02/23 11:55 06/02/23 12:00 Pulse Rate 122 H Respiratory Rate 29 H Blood Pressure 74/48 L 68/37 L Pulse Oximetry 99 Oxygen Delivery Method 06/02/23 12:00 06/02/23 12:02 06/02/23 12:02 Pulse Rate 110 H 120 H Respiratory Rate 16 38 H Blood Pressure 79/41 L Pulse Oximetry 97 97 Oxygen Delivery Method 06/02/23 12:08 06/02/23 12:08 06/02/23 12:10 Pulse Rate 136 H 125 H Respiratory Rate 27 H 31 H Blood Pressure 109/66 Pulse Oximetry 100 100 Oxygen Delivery Method 06/02/23 12:10 06/02/23 12:15 06/02/23 12:15 Pulse Rate 120 H Respiratory Rate 25 H Blood Pressure 94/51 L 89/50 L Pulse Oximetry 100 Oxygen Delivery Method 06/02/23 12:19 06/02/23 12:19 06/02/23 12:20 Pulse Rate 115 H 114 H Respiratory Rate 24 24 Blood Pressure 95/45 L Pulse Oximetry 100 100 Oxygen Delivery Method 06/02/23 12:20 06/02/23 12:25 06/02/23 12:25 Pulse Rate 114 H Respiratory Rate 19 Blood Pressure 94/44 L 93/44 L Pulse Oximetry 93 Oxygen Delivery Method 06/02/23 12:30 06/02/23 12:30 06/02/23 12:35 Pulse Rate 117 H Respiratory Rate 18 Blood Pressure 84/39 L 84/40 L Pulse Oximetry 96 Oxygen Delivery Method Room Air 06/02/23 12:35 06/02/23 12:40 06/02/23 12:40 Pulse Rate 118 H 119 H Respiratory Rate 18 19 Blood Pressure 90/42 L Pulse Oximetry 97 97 Oxygen Delivery Method 06/02/23 12:44 06/02/23 12:44 06/02/23 12:45 Pulse Rate 120 H Respiratory Rate 18 Blood Pressure 80/39 L 81/39 L Pulse Oximetry 98 Oxygen Delivery Method 06/02/23 12:45 06/02/23 12:50 06/02/23 12:50 Pulse Rate 120 H 118 H Respiratory Rate 19 18 Blood Pressure 82/41 L Pulse Oximetry 98 98 Oxygen Delivery Method 06/02/23 12:55 06/02/23 12:55 06/02/23 12:58 Pulse Rate 118 H Respiratory Rate 18 Blood Pressure 88/45 L 97/55 L Pulse Oximetry 98 Oxygen Delivery Method 06/02/23 12:58 06/02/23 13:00 06/02/23 13:00 Pulse Rate 121 H 120 H Respiratory Rate 19 18 Blood Pressure 106/59 L Pulse Oximetry 98 98 Oxygen Delivery Method 06/02/23 13:05 06/02/23 13:10 06/02/23 13:15 Pulse Rate 120 H 126 H 124 H Respiratory Rate 25 H 40 H Blood Pressure Pulse Oximetry 98 99 98 Oxygen Delivery Method 06/02/23 13:19 06/02/23 13:19 06/02/23 13:20 Pulse Rate 134 H Respiratory Rate 25 H Blood Pressure 132/68 139/69 Pulse Oximetry 99 Oxygen Delivery Method 06/02/23 13:20 06/02/23 13:25 06/02/23 13:25 Pulse Rate 129 H 123 H Respiratory Rate 22 34 H Blood Pressure 132/75 Pulse Oximetry 97 97 Oxygen Delivery Method 06/02/23 13:30 06/02/23 13:35 06/02/23 13:40 Pulse Rate 126 H 121 H 120 H Respiratory Rate 24 27 H 17 Blood Pressure Pulse Oximetry 99 99 99 Oxygen Delivery Method 06/02/23 13:45 06/02/23 13:50 06/02/23 13:55 Pulse Rate 119 H 117 H 116 H Respiratory Rate 26 H 20 19 Blood Pressure Pulse Oximetry 99 98 97 Oxygen Delivery Method 06/02/23 14:00 06/02/23 14:05 06/02/23 14:10 Pulse Rate 114 H 112 H 111 H Respiratory Rate 18 17 18 Blood Pressure Pulse Oximetry 96 95 95 Oxygen Delivery Method MDM - Nausea/Vomiting/Diarrhea Lab Data 06/02/23 11:00 06/02/23 13:30 Labs: Lab Results 06/02/23 06/02/23 06/02/23 Range/Units 11:00 11:00 11:00 WBC 11.4 H (4.5-11.0) X10^3/uL RBC 4.52 (4.0-5.2) X10^6/uL Hgb 14.0 (12.0-16.0) g/dL Hct 41.4 (36-46) % MCV 91.5 (80-100) fL MCH 31.0 (26-34) PG MCHC 33.9 (30-36) % RDW 14.0 (11.6-14.8) % Plt Count 479 H (150-400) X10^3/uL Neut % (Auto) 63.8 (50-75) % Lymph % (Auto) 29.6 (25-40) % Ellis % (Auto) 5.2 (3-14) % Eos % (Auto) 0.6 L (2-4) % Baso % (Auto) 0.8 (0-2) % Neut # (Auto) 7300 H (4595-9202) /uL Lymph # (Auto) 3400 (7927-8630) /uL Ellis # (Auto) 600 (0-900) /uL Eos # (Auto) 100 (0-450) /uL Baso # (Auto) 100 (0-100) /uL PT 11.0 (10.1-12.7) SECONDS INR 1.0 (0.9-1.3) APTT (26-36) SECONDS D-Dimer 257 (<500) ng/ml VBG pH (7.33-7.43) VBG pCO2 (45-50) mmHg VBG pO2 (35-45) mmHg VBG HCO3 (24-28) mmol/L VBG Total CO2 (24-29) mmol/L VBG O2 Saturation (70-75) % VBG Base Excess (0-4) mmol/L FiO2 Sodium 136 L (137-145) mmol/L Potassium 2.8 L (3.4-5.1) mmol/L Chloride 100 (98-107) mmol/L Carbon Dioxide 18 L (22-32) mmol/L BUN 10 (7-17) mg/dL Creatinine 0.96 (0.52-1.04) mg/dL Estimated GFR > 60 (>60) mL/min BUN/Creatinine Ratio 10.4 (6-22) Glucose 223 H (70-100) mg/dL Lactate (0.7-2.1) mmol/L Calcium 9.6 (8.4-10.2) mg/dL Total Bilirubin 0.3 (0.2-1.3) mg/dL AST 31 (14-36) IU/L ALT 26 (<35) IU/L Alkaline Phosphatase 78 (38-126) U/L Total Creatine Kinase 78 (30-135) U/L Troponin I < 0.012 (0.01-0.034) ng/mL NT-Pro-B Natriuret Pep 29 (<125) pg/mL Total Protein 7.6 (6.3-8.2) g/dL Albumin 4.6 (3.5-5.0) g/dL Globulin 3.0 (1.7-4.1) g/dL Albumin/Globulin Ratio 1.5 (1.0-2.8) Procalcitonin 0.07 (<0.5) ng/mL Serum , Qual (Negative) Ethyl Alcohol ( - 10) mg/dL Ketones (<0.27) mmol/L Blood Type Antibody Screen 06/02/23 06/02/23 06/02/23 Range/Units 11:00 11:00 11:00 WBC (4.5-11.0) X10^3/uL RBC (4.0-5.2) X10^6/uL Hgb (12.0-16.0) g/dL Hct (36-46) % MCV (80-100) fL MCH (26-34) PG MCHC (30-36) % RDW (11.6-14.8) % Plt Count (150-400) X10^3/uL Neut % (Auto) (50-75) % Lymph % (Auto) (25-40) % Ellis % (Auto) (3-14) % Eos % (Auto) (2-4) % Baso % (Auto) (0-2) % Neut # (Auto) (6879-8826) /uL Lymph # (Auto) (6209-7388) /uL Ellis # (Auto) (0-900) /uL Eos # (Auto) (0-450) /uL Baso # (Auto) (0-100) /uL PT (10.1-12.7) SECONDS INR (0.9-1.3) APTT 25 L (26-36) SECONDS D-Dimer (<500) ng/ml VBG pH (7.33-7.43) VBG pCO2 (45-50) mmHg VBG pO2 (35-45) mmHg VBG HCO3 (24-28) mmol/L VBG Total CO2 (24-29) mmol/L VBG O2 Saturation (70-75) % VBG Base Excess (0-4) mmol/L FiO2 Sodium (137-145) mmol/L Potassium (3.4-5.1) mmol/L Chloride (98-107) mmol/L Carbon Dioxide (22-32) mmol/L BUN (7-17) mg/dL Creatinine (0.52-1.04) mg/dL Estimated GFR (>60) mL/min BUN/Creatinine Ratio (6-22) Glucose (70-100) mg/dL Lactate 5.9 H* (0.7-2.1) mmol/L Calcium (8.4-10.2) mg/dL Total Bilirubin (0.2-1.3) mg/dL AST (14-36) IU/L ALT (<35) IU/L Alkaline Phosphatase (38-126) U/L Total Creatine Kinase (30-135) U/L Troponin I (0.01-0.034) ng/mL NT-Pro-B Natriuret Pep (<125) pg/mL Total Protein (6.3-8.2) g/dL Albumin (3.5-5.0) g/dL Globulin (1.7-4.1) g/dL Albumin/Globulin Ratio (1.0-2.8) Procalcitonin (<0.5) ng/mL Serum , Qual Negative (Negative) Ethyl Alcohol ( - 10) mg/dL Ketones (<0.27) mmol/L Blood Type Antibody Screen 06/02/23 06/02/23 06/02/23 Range/Units 11:00 11:40 12:05 WBC (4.5-11.0) X10^3/uL RBC (4.0-5.2) X10^6/uL Hgb (12.0-16.0) g/dL Hct (36-46) % MCV (80-100) fL MCH (26-34) PG MCHC (30-36) % RDW (11.6-14.8) % Plt Count (150-400) X10^3/uL Neut % (Auto) (50-75) % Lymph % (Auto) (25-40) % Ellis % (Auto) (3-14) % Eos % (Auto) (2-4) % Baso % (Auto) (0-2) % Neut # (Auto) (2712-9947) /uL Lymph # (Auto) (7949-9183) /uL Ellis # (Auto) (0-900) /uL Eos # (Auto) (0-450) /uL Baso # (Auto) (0-100) /uL PT (10.1-12.7) SECONDS INR (0.9-1.3) APTT (26-36) SECONDS D-Dimer (<500) ng/ml VBG pH 7.59 H (7.33-7.43) VBG pCO2 23.8 L (45-50) mmHg VBG pO2 33 L (35-45) mmHg VBG HCO3 23 L (24-28) mmol/L VBG Total CO2 23 L (24-29) mmol/L VBG O2 Saturation 77 H (70-75) % VBG Base Excess 1.0 (0-4) mmol/L FiO2 21 Sodium (137-145) mmol/L Potassium (3.4-5.1) mmol/L Chloride (98-107) mmol/L Carbon Dioxide (22-32) mmol/L BUN (7-17) mg/dL Creatinine (0.52-1.04) mg/dL Estimated GFR (>60) mL/min BUN/Creatinine Ratio (6-22) Glucose (70-100) mg/dL Lactate (0.7-2.1) mmol/L Calcium (8.4-10.2) mg/dL Total Bilirubin (0.2-1.3) mg/dL AST (14-36) IU/L ALT (<35) IU/L Alkaline Phosphatase (38-126) U/L Total Creatine Kinase (30-135) U/L Troponin I (0.01-0.034) ng/mL NT-Pro-B Natriuret Pep (<125) pg/mL Total Protein (6.3-8.2) g/dL Albumin (3.5-5.0) g/dL Globulin (1.7-4.1) g/dL Albumin/Globulin Ratio (1.0-2.8) Procalcitonin (<0.5) ng/mL Serum , Qual (Negative) Ethyl Alcohol 102 H ( - 10) mg/dL Ketones 0.75 H (<0.27) mmol/L Blood Type Antibody Screen 06/02/23 06/02/23 06/02/23 Range/Units 12:11 13:30 13:30 WBC (4.5-11.0) X10^3/uL RBC (4.0-5.2) X10^6/uL Hgb (12.0-16.0) g/dL Hct (36-46) % MCV (80-100) fL MCH (26-34) PG MCHC (30-36) % RDW (11.6-14.8) % Plt Count (150-400) X10^3/uL Neut % (Auto) (50-75) % Lymph % (Auto) (25-40) % Ellis % (Auto) (3-14) % Eos % (Auto) (2-4) % Baso % (Auto) (0-2) % Neut # (Auto) (4168-7993) /uL Lymph # (Auto) (2168-6059) /uL Ellis # (Auto) (0-900) /uL Eos # (Auto) (0-450) /uL Baso # (Auto) (0-100) /uL PT (10.1-12.7) SECONDS INR (0.9-1.3) APTT (26-36) SECONDS D-Dimer (<500) ng/ml VBG pH (7.33-7.43) VBG pCO2 (45-50) mmHg VBG pO2 (35-45) mmHg VBG HCO3 (24-28) mmol/L VBG Total CO2 (24-29) mmol/L VBG O2 Saturation (70-75) % VBG Base Excess (0-4) mmol/L FiO2 Sodium 138 (137-145) mmol/L Potassium 3.1 L (3.4-5.1) mmol/L Chloride 101 (98-107) mmol/L Carbon Dioxide 23 (22-32) mmol/L BUN 11 (7-17) mg/dL Creatinine 0.78 (0.52-1.04) mg/dL Estimated GFR > 60 (>60) mL/min BUN/Creatinine Ratio 14.1 (6-22) Glucose 162 H (70-100) mg/dL Lactate 4.1 H* (0.7-2.1) mmol/L Calcium 8.5 (8.4-10.2) mg/dL Total Bilirubin (0.2-1.3) mg/dL AST (14-36) IU/L ALT (<35) IU/L Alkaline Phosphatase (38-126) U/L Total Creatine Kinase (30-135) U/L Troponin I (0.01-0.034) ng/mL NT-Pro-B Natriuret Pep (<125) pg/mL Total Protein (6.3-8.2) g/dL Albumin (3.5-5.0) g/dL Globulin (1.7-4.1) g/dL Albumin/Globulin Ratio (1.0-2.8) Procalcitonin (<0.5) ng/mL Serum , Qual (Negative) Ethyl Alcohol ( - 10) mg/dL Ketones (<0.27) mmol/L Blood Type B Positive Antibody Screen Negative Point of Care Testing Glucose POC 221 Imaging Data Chest x-ray: Radiologist's Impression: Close Chest X-Ray (Signed) Kentrell Armijo - 06/02/23 Launch?[place] [address] XRay Report Signed Patient: Zohreh Street MR#: [id number] : 1995 Acct:[id number] Age/Sex: 28 / F Date of Service: 06/02/23 Loc: ED Accession Number: [id number] ?? Procedure: XR chest 1V Ordering Provider: Giovanna Sutton D.O. PROCEDURE:? XR CHEST 1V ? INDICATIONS:? tachycardia, vomiting ? TECHNIQUE:? One view of the chest was acquired.? ? COMPARISON:? None. ? FINDINGS:? ? Surgical changes and devices:? None.? ? Lungs and pleura:? Lungs are clear.? No pleural effusions or pneumothorax.? ? Mediastinum:? Mediastinal contours appear normal.? Heart size is normal.? ? Bones and chest wall:? No suspicious bony lesions.? Overlying soft tissues appear unremarkable.? ? IMPRESSION:? Chest without acute cardiopulmonary abnormalities. No focal consolidation. ? ? Dictated by: Kentrell Armijo M.D. on 06/02/2023 at 10:18 ? ? Approved by: Kentrell Armijo M.D. on 06/02/2023 at 10:19?? CT scan - chest: Radiologist's Impression: Close Abdomen/Pelvis CT 06/02/23 Chest CTA (Signed) Kentrell Armijo - 06/02/23 Chest X-Ray (Signed) Kentrell Armijo - 06/02/23 Launch?[place] [address] CT Scan Report Signed Patient: Zohreh Street MR#: [id number] : 1995 Acct:[id number] Age/Sex: 28 / F Date of Service: 06/02/23 Loc: ED Accession Number: [id number] ?? Procedure: CT angio chest PE protocol Ordering Provider: Giovanna Sutton D.O. PROCEDURE:? CT ANGIO CHEST PE PROTOCOL ? INDICATIONS:? vomiting, tachycardia, hypotension ? TECHNIQUE:? After the administration of intravenous contrast, 2 mm thick sections acquired from the pulmonary apices to the posterior costophrenic angles.? 3-dimensional maximum intensity projection (MIP) coronal and sagittal reformats were then acquired through the thorax.? For radiation dose reduction, the following was used:? automated exposure contro l, adjustment of mA and/or kV according to patient size.? ? COMPARISON:? None. ? FINDINGS: ? Image quality:? Image degraded by moderate patient motion artifact.? ? Pulmonary arteries:? Pulmonary arteries are normal in size, and demonstrate no intraluminal filling defects to suggest central pulmonary embolism.? ? ? Lungs and pleura:? Mild dependent atelectasis.? No pleural effusions or pneumothorax.? Central and peripheral airways are patent.? No focal consolidation.? ? Mediastinum:? Heart size is normal, without pericardial effusion.? No mediastinal or hilar adenopathy.? Thoracic aorta is normal in caliber and enhancement.? Esophagus is normal in caliber.? Moderate-sized hiatal hernia.? ? ? Bones and chest wall:? No suspicious bony lesions.? Ribs and thoracic spine appear intact throughout.? Thyroid gland is unremarkable.? No axillary or supraclavicular adenopathy. ? ? ? Abdomen:? Visualized upper abdominal solid organs appear normal in the early arterial phase of enhancement.? ? ? IMPRESSION:? Study limited by moderate respiratory motion artifact.? Within these limitations, no acute cardiopulmonary abnormalities or acute pulmonary emboli identified. ?No evidence for acute right-sided heart strain.? No focal airspace disease identified. ? ? ? Dictated by: Kentrell Armijo M.D. on 06/02/2023 at 12:43 ? ? Approved by: Kentrell Armijo M.D. on 06/02/2023 at 12:47?? ECG Data Attestation: I personally reviewed and interpreted this ECG as follows: Interpretation: Sinus tachycardia rate of 134 MN 130, QRS [address]TC [address] No acute [address] elevation noted. No depression noted. No priors available. MDM Narrative Medical decision making narrative: This is a 28-year-old female with complaint of nausea vomiting fast heart rate. Patient has had similar symptoms in the past she states in [place] drinking al cohol she did smoke marijuana prior to arrival. She states symptoms started shortly thereafter. She is hypotensive which is atypical compared to prior visits. Patient given fluids, Zofran heart rates starting to improve. Patient was given sepsis fluids 30 cc/kilos bolus, chest x-ray, EKG shows sinus tachycardia no clear ST changes appreciated no priors for comparison. Labs were obtained mild leukocytosis 11 platelets are 479 normal hemoglobin, coags appropriate including dimer 257. CMP shows sodium 136 potassium 2.8 CO2 is 18, cords appropriate at 100 normal creatinine, glucose of 223, lactate 5.9 normal calcium LFTs troponin negative procalcitonin. Patient had serum which was negative. Lactate was repeated after 2 L of fluid and is still 4.1. Toxicology positive for 1 O2 ETOH ketones 0.75. VBG shows a pH is 7.59 pCO2 23. Patient has not given a urine sample yet, she received Zofran followed by Ativan and then Haldol which has ultimately stopped her emesis. Blood pressure has improved she was quite hypotensive initially has not improved to 1 20s over 130s. But still has tachycardia in the 110s. Patient's symptoms were suspected to be likely contraction alkalosis secondary to EtOH abuse and vomiting but because of hypotension and persistent tachycardia CT a was obtained no obvious changes slightly limited study. CT abdomen pelvis does not show any acute changes or causes. Patient did have a little bit of brownish emesis along with her emesis here in the department, no bright red blood. Case was discussed with Dr. Palomo who accepts for observation. Patient has not made a urine sample yet. Continuing 3rd Liter with LR.. Patient does meet SIRS criteria but my suspicion is that this is not a infectious source on antibiotics were held. Critical Care Time Critical Care Time Critical Care Time: Yes Total Critical Care Time: 45 Attestation: The high probability of a clinically significant, sudden or life threatening deterioration of the [] system(s) required my full and direct attention, intervention and personal management. The aggregate critical care time was [] minutes. This time is in addition to time spent performing reported procedures but includes the following: [x] Data Review and interpretation [x] Patient assessment and monitoring of vital signs [x] Documentation [x] Medication orders and management Discharge Plan Departure Patient Disposition: Admitted as Observation Clinical Impression: Hypokalemia, Vomiting, SIRS (systemic inflammatory response syndrome), Tachycardia Admit Date/Time: 06/02/23 14:14 Admit Provider: Kaylyn Palomo
--- NOTE | 2023-06-02 11:02 | DI.RAD.S_ITS ---
PROCEDURE: XR CHEST 1V INDICATIONS: tachycardia, vomiting TECHNIQUE: One view of the chest was acquired. COMPARISON: None. FINDINGS: Surgical changes and devices: None. Lungs and pleura: Lungs are clear. No pleural effusions or pneumothorax. Mediastinum: Mediastinal contours appear normal. Heart size is normal. Bones and chest wall: No suspicious bony lesions. Overlying soft tissues appear unremarkable. IMPRESSION: Chest without acute cardiopulmonary abnormalities. No focal consolidation. Dictated by: Kentrell Armijo M.D. on 06/02/2023 at 10:18 Approved by: Kentrell Armijo M.D. on 06/02/2023 at 10:19
[2023-06-02] MEDS: ONDANSETRON 4 MG/2 ML INJ IV (11:06)
[2023-06-02] MEDS: SODIUM CHLORIDE 0.9% 1,837.05 ML 612.35 ML IV (11:07)
[2023-06-02 11:11] LABS: Add Manual Diff / Slide Review NO; Basophils Absolute Auto 100 /uL (0-100); Basophils Percent Auto 0.8 % (0-2); Eosinophils Absolute Auto 100 /uL (0-450); Eosinophils Percent Auto 0.6 % (2-4); Hematocrit 41.4 % (36-46); Lymphocytes Absolute Auto 3400 /uL (1100-4500); Lymphocytes Percent Auto 29.6 % (25-40); Mean Corpuscular HGB Conc 33.9 % (30-36); Mean Corpuscular Volume 91.5 fL (80-100); Monocytes Absolute Auto 600 /uL (0-900); Monocytes Percent Auto 5.2 % (3-14); Neutrophils Absolute Auto 7300 /uL (1500-7000); Neutrophils Percent Auto 63.8 % (50-75); Platelet Count 479 X10^3/uL (150-400); Red Blood Cell Count 4.52 X10^6/uL (4.0-5.2); White Blood Cell Count 11.4 X10^3/uL (4.5-11.0)
[2023-06-02 11:24] LABS: Alanine Aminotransferase 26 IU/L (<35); Albumin 4.6 g/dL (3.5-5.0); Albumin Globulin Ratio 1.5 (1.0-2.8); Alkaline Phosphatase 78 U/L (38-126); Aspartate Aminotransferase 31 IU/L (14-36); BUN Creatinine Ratio 10.4 (6-22); Bilirubin Total 0.3 mg/dL (0.2-1.3); Blood Urea Nitrogen 10 mg/dL (7-17); Calcium 9.6 mg/dL (8.4-10.2); Carbon Dioxide 18 mmol/L (22-32); Chloride 100 mmol/L (98-107); Creatine Kinase 78 U/L (30-135); Estimated Glomerular Filt Rate > 60 mL/min (>60); Glucose 223 mg/dL (70-100); HEMOLYSIS < 15 (0-50); Potassium 2.8 mmol/L (3.4-5.1); Sodium 136 mmol/L (137-145); Total Protein 7.6 g/dL (6.3-8.2)
[2023-06-02 11:29] LABS: Lactate (Lactic Acid) 5.9 mmol/L (0.7-2.1)
[2023-06-02 11:31] LABS: D Dimer 257 ng/ml (<500)
[2023-06-02 11:36] LABS: NT-proBNP (BNP-Adult 18+) 29 pg/mL (<125); Troponin I < 0.012 ng/mL (0.01-0.034)
[2023-06-02 11:40] LABS: Procalcitonin 0.07 ng/mL (<0.5)
[2023-06-02 11:44] LABS: Ethanol (ETOH) 102 mg/dL; PTT Partial Thromboplastin Tim 25 SECONDS (26-36)
--- NOTE | 2023-06-02 11:45 | DI.CT.S_ITS ---
PROCEDURE: CT ABDOMEN PELVIS W CON INDICATIONS: vomiting, tachycardia, hypotension TECHNIQUE: After the administration of intravenous contrast, axial sections acquired from the lung bases to the pubic symphysis. Coronal and sagittal reformats were performed. For radiation dose reduction, the following was used: automated exposure control, adjustment of mA and/or kV according to patient size. COMPARISON: None. FINDINGS: Image quality: Image degraded by moderate patient motion artifact.. Lung bases: Bibasilar atelectasis. Moderate-sized hiatal hernia. Heart: No significant findings. ABDOMEN: Liver: Liver is unremarkable in appearance without focal intrahepatic abnormalities. No intrahepatic or extrahepatic biliary ductal dilatation. Gallbladder: Unremarkable. Biliary ducts: No intrahepatic or extrahepatic biliary ductal dilatation identified. Pancreas: Homogeneous enhancement without focal lesions or pancreatic ductal dilatation. No peripancreatic inflammation or organized fluid collections. Spleen: No splenomegaly Adrenal Glands: Unremarkable. Kidneys and Ureters: Kidneys are symmetric in size and enhancement, and there is no obstructive uropathy. No perinephric inflammatory changes. Ureters are normal in course and caliber. Stomach and Bowel: Stomach, small bowel loops, and colon are unremarkable. Normal appendix Peritoneum: No abnormal intraperitoneal fluid. No free air. Ventral Wall: No hernias. Abdominal Nodes: No retroperitoneal or mesenteric adenopathy by size criteria. Vessels: Aorta and inferior vena cava are normal in size. PELVIS: Pelvic Organs: Unremarkable. Bladder: Unremarkable. Pelvic Nodes: No enlarged lymph nodes. Miscellaneous: No hernias are seen. Bones: Unremarkable. IMPRESSION: CT abdomen and pelvis without acute abnormalities to explain patient's symptoms. Moderate-sized hiatal hernia. Dictated by: Kentrell Armijo M.D. on 06/02/2023 at 12:47 Approved by: Kentrell Armijo M.D. on 06/02/2023 at 12:51
--- NOTE | 2023-06-02 11:45 | DI.CT.S_ITS ---
PROCEDURE: CT ANGIO CHEST PE PROTOCOL INDICATIONS: vomiting, tachycardia, hypotension TECHNIQUE: After the administration of intravenous contrast, 2 mm thick sections acquired from the pulmonary apices to the posterior costophrenic angles. 3-dimensional maximum intensity projection (MIP) coronal and sagittal reformats were then acquired through the thorax. For radiation dose reduction, the following was used: automated exposure control, adjustment of mA and/or kV according to patient size. COMPARISON: None. FINDINGS: Image quality: Image degraded by moderate patient motion artifact. Pulmonary arteries: Pulmonary arteries are normal in size, and demonstrate no intraluminal filling defects to suggest central pulmonary embolism. Lungs and pleura: Mild dependent atelectasis. No pleural effusions or pneumothorax. Central and peripheral airways are patent. No focal consolidation. Mediastinum: Heart size is normal, without pericardial effusion. No mediastinal or hilar adenopathy. Thoracic aorta is normal in caliber and enhancement. Esophagus is normal in caliber. Moderate-sized hiatal hernia. Bones and chest wall: No suspicious bony lesions. Ribs and thoracic spine appear intact throughout. Thyroid gland is unremarkable. No axillary or supraclavicular adenopathy. Abdomen: Visualized upper abdominal solid organs appear normal in the early arterial phase of enhancement. IMPRESSION: Study limited by moderate respiratory motion artifact. Within these limitations, no acute cardiopulmonary abnormalities or acute pulmonary emboli identified. No evidence for acute right-sided heart strain. No focal airspace disease identified. Dictated by: Kentrell Armijo M.D. on 06/02/2023 at 12:43 Approved by: Kentrell Armijo M.D. on 06/02/2023 at 12:47
[2023-06-02] MEDS: LORazepam 2 MG/ML INJ 1 MG IV (11:56)
[2023-06-02] MEDS: POTASSIUM CHLORIDE IN WATER 10 MEQ/100 ML PIGGYBACK 100 MEQ IV ×7 (11:56→23:01)
[2023-06-02] MEDS: PANTOPRAZOLE 40 MG VIAL 80 MG IV (11:59)
[2023-06-02 12:00] LABS: Pregnancy Test Serum,Qual Negative (Negative)
[2023-06-02] MEDS: HALOPERIDOL 5 MG/ML VIAL IV (12:13)
[2023-06-02 12:14] LABS: Ketones (Beta-Hydroxybutyrate) 0.75 mmol/L (<0.27)
[2023-06-02 12:19] LABS: Fractionated Inspired Oxygen 21; HCO3 VBG 23 mmol/L (24-28); Oxygen Saturation VBG 77 % (70-75); PCO2 VBG 23.8 mmHg (45-50); PO2 VBG 33 mmHg (35-45); Total CO2 VBG 23 mmol/L (24-29); pH VBG 7.59 (7.33-7.43)
--- NOTE | 2023-06-02 12:47 | PC.NURSE ---
Pt having red-tinged and coffee ground emisis. Dr Sutton away.
[2023-06-02 13:06] LABS: Reflexed Lactate in 2 Hours Y
[2023-06-02 13:52] LABS: BUN Creatinine Ratio 14.1 (6-22); Blood Urea Nitrogen 11 mg/dL (7-17); Calcium 8.5 mg/dL (8.4-10.2); Carbon Dioxide 23 mmol/L (22-32); Chloride 101 mmol/L (98-107); Estimated Glomerular Filt Rate > 60 mL/min (>60); Glucose 162 mg/dL (70-100); HEMOLYSIS < 15 (0-50); Potassium 3.1 mmol/L (3.4-5.1); Sodium 138 mmol/L (137-145)
[2023-06-02 14:06] LABS: Lactate 2HR (Lactic Acid Rflx) 4.1 mmol/L (0.7-2.1)
[2023-06-02] MEDS: LACTATED RINGERS 1,000 ML 1000 ML IV (14:19)
--- NOTE | 2023-06-02 14:40 | P.HP_ITS ---
History of Present Illness History of Present Illness Date Patient Seen: 06/02/23 Chief complaint: high bp, vomiting per pt Narrative: Aruna Street is a 28-year-old female with history of alcohol abuse, bipolar disorder with complaint of nausea and vomiting and fast heart rate.? Patient stated she drank a lot of alcohol last night she does sometimes have persistent nausea and vomiting afterwards.? She denied fevers, but she has been very sweaty.? She stated she does have a headache, she denied chest pain, denied shortness of breath.? She did have some abdominal pain, stated she started throwing up today.? She has not had any diarrhea constipation that she is aware of.? No dysuria urgency or frequency.? No back or flank pain.? She stated she has had fast heart rate in the past when she is throwing up.? No syncope.? She takes Antabuse, trazodone, gabapentin and lamotrigine.? She stated this is for alcohol use, mood disorder, no seizure history.? Patient denied any prior bailey rgeries.? She does use tobacco daily, she does drink regularly.? She does use marijuana she did smoke this morning prior to arrival.? She denied other recreational substances.? Patient stated she took her Antabuse yesterday.? She stated that she drinks most days.? PFSH Family History Family/Other Bipolar 1 disorder, depressed Social History household members: significant other Smoking Status: Current every day smoker alcohol intake: current additional social history: SUBSTANCE USE HISTORY - Tobacco: Daily smoker - Alcohol: The patient's mother reports a history of alcohol abuse in the past, recent history is unclear - Drugs: The patient to be does apparently have a past history of use of ecstasy and mushrooms when she was an adolescent, or in her early 20s, but patient, mother, and boyfriend all deny that she currently uses any drugs except for marijuana. DEVELOPMENTAL AND SOCIAL HISTORY - Family Constellation/Environment: Patient was [place] region and patient's mother notes a generally unremarkable childhood. - Childhood Trauma: No apparent history of physical or sexual abuse or witnessing violence. - Developmental milestones: The patient reached normal developmental milestones. - Education: The patient was an adequate student in school and graduated from high school. - Employment: The patient has been employed regularly in the last several years and was recently changing jobs. - Relationships: Patient has been in a long-term relationship with her current boyfriend - Current Living: Patient her boyfriend currently live on [facility]. - Support: Income from employment. - Legal: No current legal difficulties. HISTORY - None. - Deployments: N/A - Combat Exposure: N/A - Blast Exposure: N/A SIGNIFICANT MEDICAL HISTORY PCP: Unknown - Allergies: NKDA - Medical Problems: None known - Current Medications: See list above. - Herbals/Supplements: None. Meds Home Medications and Allergies Home Medications Medication Instructions Recorded Confirmed Type disulfiram 250 mg tablet 500 mg PO DAILY 06/02/23 06/02/23 History gabapentin 600 mg tablet 600 mg PO 3XD PRN insomnia 06/02/23 06/02/23 History lamotrigine 25 mg tablet 50 mg PO DAILY 06/02/23 06/02/23 History trazodone 100 mg tablet 200 mg PO ONCE PM PRN insomnia 06/02/23 06/02/23 History Allergies Allergy/AdvReac Type Severity Reaction Status Date / Time No Known Drug Allergies Allergy Verified 08/20/22 14:12 Review of Systems Review of Systems Narrative: Fourteen system review was completed and pertinent findings are in the history of chief complaint. Exam Vital Signs (past 8 hours): - 06/02/23 10:50 06/02/23 10:54 06/02/23 10:57 Temperature 97.2 F L Pulse Rate 166 H 150 H Respiratory Rate 30 H 30 H Blood Pressure 83/44 L 77/38 L 79/40 L Pulse Oximetry 98 98 Oxygen Delivery Method Room Air Room Air 06/02/23 10:57 06/02/23 11:00 06/02/23 11:03 Temperature Pulse Rate 140 H 126 H 139 H Respiratory Rate 20 26 H Blood Pressure Pulse Oximetry 98 97 94 Oxygen Delivery Method 06/02/23 11:03 06/02/23 11:30 06/02/23 11:42 Temperature Pulse Rate 136 H 113 H Respiratory Rate 21 5 L Blood Pressure 91/55 L Pulse Oximetry 97 97 Oxygen Delivery Method 06/02/23 11:42 06/02/23 11:43 06/02/23 11:43 Temperature Pulse Rate 118 H Respiratory Rate 26 H Blood Pressure 71/41 L 77/41 L Pulse Oximetry 97 Oxygen Delivery Method 06/02/23 11:45 06/02/23 11:45 06/02/23 11:50 Temperature Pulse Rate 122 H 143 H Respiratory Rate 30 H 29 H Blood Pressure 71/37 L Pulse Oximetry 99 98 Oxygen Delivery Method 06/02/23 11:50 06/02/23 11:55 06/02/23 11:55 Temperature Pulse Rate 122 H Respiratory Rate 29 H Blood Pressure 73/42 L 74/48 L Pulse Oximetry 99 Oxygen Delivery Method 06/02/23 12:00 06/02/23 12:00 06/02/23 12:02 Temperature Pulse Rate 110 H 120 H Respiratory Rate 16 38 H Blood Pressure 68/37 L Pulse Oximetry 97 97 Oxygen Delivery Method 06/02/23 12:02 06/02/23 12:08 06/02/23 12:08 Temperature Pulse Rate 136 H Respiratory Rate 27 H Blood Pressure 79/41 L 109/66 Pulse Oximetry 100 Oxygen Delivery Method 06/02/23 12:10 06/02/23 12:10 06/02/23 12:15 Temperature Pulse Rate 125 H 120 H Respiratory Rate 31 H 25 H Blood Pressure 94/51 L Pulse Oximetry 100 100 Oxygen Delivery Method 06/02/23 12:15 06/02/23 12:19 06/02/23 12:19 Temperature Pulse Rate 115 H Respiratory Rate 24 Blood Pressure 89/50 L 95/45 L Pulse Oximetry 100 Oxygen Delivery Method 06/02/23 12:20 06/02/23 12:20 06/02/23 12:25 Temperature Pulse Rate 114 H 114 H Respiratory Rate 24 19 Blood Pressure 94/44 L Pulse Oximetry 100 93 Oxygen Delivery Method 06/02/23 12:25 06/02/23 12:30 06/02/23 12:30 Temperature Pulse Rate 117 H Respiratory Rate 18 Blood Pressure 93/44 L 84/39 L Pulse Oximetry 96 Oxygen Delivery Method Room Air 06/02/23 12:35 06/02/23 12:35 06/02/23 12:40 Temperature Pulse Rate 118 H Respiratory Rate 18 Blood Pressure 84/40 L 90/42 L Pulse Oximetry 97 Oxygen Delivery Method 06/02/23 12:40 06/02/23 12:44 06/02/23 12:44 Temperature Pulse Rate 119 H 120 H Respiratory Rate 19 18 Blood Pressure 80/39 L Pulse Oximetry 97 98 Oxygen Delivery Method 06/02/23 12:45 06/02/23 12:45 06/02/23 12:50 Temperature Pulse Rate 120 H Respiratory Rate 19 Blood Pressure 81/39 L 82/41 L Pulse Oximetry 98 Oxygen Delivery Method 06/02/23 12:50 06/02/23 12:55 06/02/23 12:55 Temperature Pulse Rate 118 H 118 H Respiratory Rate 18 18 Blood Pressure 88/45 L Pulse Oximetry 98 98 Oxygen Delivery Method 06/02/23 12:58 06/02/23 12:58 06/02/23 13:00 Temperature Pulse Rate 121 H Respiratory Rate 19 Blood Pressure 97/55 L 106/59 L Pulse Oximetry 98 Oxygen Delivery Method 06/02/23 13:00 06/02/23 13:05 06/02/23 13:10 Temperature Pulse Rate 120 H 120 H 126 H Respiratory Rate 18 25 H Blood Pressure Pulse Oximetry 98 98 99 Oxygen Delivery Method 06/02/23 13:15 06/02/23 13:19 06/02/23 13:19 Temperature Pulse Rate 124 H 134 H Respiratory Rate 40 H 25 H Blood Pressure 132/68 Pulse Oximetry 98 99 Oxygen Delivery Method 06/02/23 13:20 06/02/23 13:20 Temperature Pulse Rate 129 H Respiratory Rate 22 Blood Pressure 139/69 Pulse Oximetry 97 Oxygen Delivery Method Oxygen Delivery Method Room Air Narrative Exam Narrative: GEN: well nourished, female, alert and oriented x 3, patient appears to be in moderate distress.? No diaphoresis. HEENT: Atraumatic, pupils are equal round reactive to light, extraocular movements are intact, nares are clear, TMs are clear with no fluid, there is no conjunctival pallor.? Throat is clear without any exudates, erythema, tonsillar enlargement or uvular deviation HEART:? Tachycardic but regular rate and rhythm without murmur, clicks, rubs.? Pulses are equal in upper and lower extremities LUNGS:Lungs clear to auscultation, no wheezes, rales, crackles, chest moves symmetrically, no tachypnea.? No accessory muscle use. ABD:bowel sounds normal, soft, non-tender, no guarding, rebound, rigidity, no masses noted, no hepatosplenomegaly, nondistended.? Patient is actively vomiting clear liquid been evaluated. :No CVA tenderness MSCL: Non-tender, no muscle atrophy, muscles strength 5/5 upper and lower extremities, full range of motion, normal gait NEURO:CN 2-12 intact, sensation normal. SKIN:? No rash, erythema or other skin changes. Objective Labs 06/02/23 11:00 06/02/23 13:30 Labs: Laboratory Results - last 24 hr 06/02/23 06/02/23 06/02/23 11:00 11:00 11:00 WBC 11.4 H RBC 4.52 Hgb 14.0 Hct 41.4 MCV 91.5 MCH 31.0 MCHC 33.9 RDW 14.0 Plt Count 479 H Neut % (Auto) 63.8 Lymph % (Auto) 29.6 [place] % (Auto) 5.2 Eos % (Auto) 0.6 L Baso % (Auto) 0.8 Neut # (Auto) 7300 H Lymph # (Auto) 3400 [place] # (Auto) 600 Eos # (Auto) 100 Baso # (Auto) 100 PT 11.0 INR 1.0 APTT D-Dimer 257 VBG pH VBG pCO2 VBG pO2 VBG HCO3 VBG Total CO2 VBG O2 Saturation VBG Base Excess FiO2 Sodium 136 L Potassium 2.8 L Chloride 100 Carbon Dioxide 18 L BUN 10 Creatinine 0.96 Estimated GFR > 60 BUN/Creatinine Ratio 10.4 Glucose 223 H Lactate Calcium 9.6 Total Bilirubin 0.3 AST 31 ALT 26 Alkaline Phosphatase 78 Total Creatine Kinase 78 Troponin I < 0.012 NT-Pro-B Natriuret Pep 29 Total Protein 7.6 Albumin 4.6 Globulin 3.0 Albumin/Globulin Ratio 1.5 Procalcitonin 0.07 Serum , Qual Ethyl Alcohol Ketones Blood Type Antibody Screen 06/02/23 06/02/23 06/02/23 11:00 11:00 11:00 WBC RBC Hgb Hct MCV MCH MCHC RDW Plt Count Neut % (Auto) Lymph % (Auto) [place] % (Auto) Eos % (Auto) Baso % (Auto) Neut # (Auto) Lymph # (Auto) [place] # (Auto) Eos # (Auto) Baso # (Auto) PT INR APTT 25 L D-Dimer VBG pH VBG pCO2 VBG pO2 VBG HCO3 VBG Total CO2 VBG O2 Saturation VBG Base Excess FiO2 Sodium Potassium Chloride Carbon Dioxide BUN Creatinine Estimated GFR BUN/Creatinine Ratio Glucose Lactate 5.9 H* Calcium Total Bilirubin AST ALT Alkaline Phosphatase Total Creatine Kinase Troponin I NT-Pro-B Natriuret Pep Total Protein Albumin Globulin Albumin/Globulin Ratio Procalcitonin Serum , Qual Negative Ethyl Alcohol Ketones Blood Type Antibody Screen 06/02/23 06/02/23 06/02/23 11:00 11:40 12:05 WBC RBC Hgb Hct MCV MCH MCHC RDW Plt Count Neut % (Auto) Lymph % (Auto) [place] % (Auto) Eos % (Auto) Baso % (Auto) Neut # (Auto) Lymph # (Auto) [place] # (Auto) Eos # (Auto) Baso # (Auto) PT INR APTT D-Dimer VBG pH 7.59 H VBG pCO2 23.8 L VBG pO2 33 L VBG HCO3 23 L VBG Total CO2 23 L VBG O2 Saturation 77 H VBG Base Excess 1.0 FiO2 21 Sodium Potassium Chloride Carbon Dioxide BUN Creatinine Estimated GFR BUN/Creatinine Ratio Glucose Lactate Calcium Total Bilirubin AST ALT Alkaline Phosphatase Total Creatine Kinase Troponin I NT-Pro-B Natriuret Pep Total Protein Albumin Globulin Albumin/Globulin Ratio Procalcitonin Serum , Qual Ethyl Alcohol 102 H Ketones 0.75 H Blood Type Antibody Screen 06/02/23 06/02/23 06/02/23 12:11 13:30 13:30 WBC RBC Hgb Hct MCV MCH MCHC RDW Plt Count Neut % (Auto) Lymph % (Auto) [place] % (Auto) Eos % (Auto) Baso % (Auto) Neut # (Auto) Lymph # (Auto) [place] # (Auto) Eos # (Auto) Baso # (Auto) PT INR APTT D-Dimer VBG pH VBG pCO2 VBG pO2 VBG HCO3 VBG Total CO2 VBG O2 Saturation VBG Base Excess FiO2 Sodium 138 Potassium 3.1 L Chloride 101 Carbon Dioxide 23 BUN 11 Creatinine 0.78 Estimated GFR > 60 BUN/Creatinine Ratio 14.1 Glucose 162 H Lactate 4.1 H* Calcium 8.5 Total Bilirubin AST ALT Alkaline Phosphatase Total Creatine Kinase Troponin I NT-Pro-B Natriuret Pep Total Protein Albumin Globulin Albumin/Globulin Ratio Procalcitonin Serum , Qual Ethyl Alcohol Ketones Blood Type B Positive Antibody Screen Negative Assessment & Plan Assessment & Plan narrative: 1. Excessive drinking while taking Antabuse. Is wishing to stop drinking, have consulted social work to help with finding available programs for the patient. 2. Hypokalemia. KCL rider given in the ER with some improvement to potassium now of 3.1. Continue to supplement and follow. 3. Vomiting. Appears to have subsided with current treatment. Continue clear fluids only and provide antiemetic medication as needed. In ER at the end of profuse vomiting the patient had some tinge of coffee grains in vomitus. Concern for alcoholic gastritis. Treat with initial dose of Protonix 80 mg IV followed by Protonix 40 mg IV b.i.d. 4. SIRS (systemic inflammatory response syndrome). Elevated white blood count. Elevated lactic acid. Associated tachycardia. Fluid resuscitation provided in the ER with approximately 3 L. Provide continued intravenous fluids. Blood cultures pending. Ceftriaxone 2 g IV daily. 5. Tachycardia. Has subsided, 108 currently. Continue to provide intravenous fluids and monitor heart rate. Telemetry monitoring. 6. Mood disorder. Continue patient's current medication which include gabapentin, trazodone and lamotrigine. 7. Alcohol use disorder. Once patient stabilizes restart Antabuse. I have utilized all available immediate resources to obtain, update, or review the patient's current medications. Additional history is obtained via discussion with the ER provider and I have reviewed current labs and imaging findings. Patient to be admitted as Inpatient with expectation to be in hospital greater than 2 midnights. DVT prophylaxis: Enoxaparin subQ daily Code status: Full code Surrogate decisionmaker: Patient's mother, Janine Street COVID-19 COVID-19 status: Not tested Time Spent With Patient Time with patient: 70 minutes or more, with 50% spent counseling/coordinating Quality MIPS - Admit I confirm the patient?s Advance Care Plan is present, Code status is documented, Surrogate decision maker is in patient?s record [If Yes, STOP here]: Yes MIPS - Meds 'Current medications' to include all prescriptions, [id number] products, herbals, cannabis/cannabidiol products, and vitamin/mineral/dietary (nutritional) supplements. I have utilized all available resources to obtain, update, or review the patient?s current medications. [If Yes, STOP here]: Yes
[2023-06-02] MEDS: cefTRIAXone 2,000 MG in SODIUM CHLORIDE 0.9% 100 ML 200 MG IV (17:01)
--- NOTE | 2023-06-02 17:10 | PC.NURSE ---
Pt arrived from ED on stretcher at 1500, A&Ox4, VSS on RA, no c/o nausea or stomach pain, bowel sounds present. CMS+. Tele in place: NSR. Pt oriented to room and call light.
[2023-06-02 17:33] LABS: Appearance Urine UA CLEAR; Bilirubin Urine UA NEGATIVE (NEGATIVE); Color Urine UA YELLOW; Glucose Urine UA TRACE g/dL (Negative); Ketones Urine UA 1+ (NEGATIVE); Leukocyte Esterase Urine UA NEGATIVE (NEGATIVE); Nitrite Urine UA NEGATIVE (Negative); Occult Blood Urine UA NEGATIVE (Negative); Protein Urine UA NEGATIVE (Negative); Urobilinogen Urine UA 0.2 E.U./dL (0.2)
[2023-06-02 17:39] LABS: pH Urine UA 8.5 (4.5-8.0)
[2023-06-02 17:40] LABS: Bacteria Urine Few (2-10); RBC Urine None Seen (0-5/HPF); Squamous Epithelial Cell Urine 1-5 /HPF (0-5/HPF); WBC Urine None Seen (0-5/HPF)
[2023-06-02 17:41] LABS: Culture Indicated Urine Cult Not Indicated
[2023-06-02] MEDS: LACTATED RINGERS 1,000 ML 100 ML IV (18:17)
[2023-06-02] MEDS: PANTOPRAZOLE 40 MG VIAL IV (22:31)
[2023-06-03] MEDS: POTASSIUM CHLORIDE IN WATER 10 MEQ/100 ML PIGGYBACK 100 MEQ IV (00:08)
[2023-06-03 03:03] VITALS: BP 150/102; PULSE 80; RESP 18; TEMP 36.6; O2SAT 98
[2023-06-03] MEDS: LACTATED RINGERS 1,000 ML 100 ML IV (04:14)
--- NOTE | 2023-06-03 06:12 | PC.NURSE ---
Vape found at patients bedside, educated pt on hospital policy on smoking in hospital. Vape placed in safe with valuables bag.
[2023-06-03 06:56] LABS: Add Manual Diff / Slide Review NO; Basophils Absolute Auto 100 /uL (0-100); Basophils Percent Auto 0.6 % (0-2); Eosinophils Absolute Auto 0 /uL (0-450); Eosinophils Percent Auto 0.5 % (2-4); Hematocrit 35.6 % (36-46); Hemoglobin 12.3 g/dL (12.0-16.0); Lymphocytes Absolute Auto 1800 /uL (1100-4500); Lymphocytes Percent Auto 18.4 % (25-40); Mean Corpuscular HGB Conc 34.5 % (30-36); Mean Corpuscular Hemoglobin 31.7 PG (26-34); Mean Corpuscular Volume 91.8 fL (80-100); Monocytes Absolute Auto 700 /uL (0-900); Monocytes Percent Auto 7.2 % (3-14); Neutrophils Absolute Auto 7100 /uL (1500-7000); Neutrophils Percent Auto 73.3 % (50-75); Platelet Count 319 X10^3/uL (150-400); Red Blood Cell Count 3.88 X10^6/uL (4.0-5.2); Red Cell Distribution Width 14.1 % (11.6-14.8); White Blood Cell Count 9.7 X10^3/uL (4.5-11.0)
[2023-06-03 07:06] LABS: Lactate (Lactic Acid) 0.7 mmol/L (0.7-2.1)
[2023-06-03 07:08] LABS: Alanine Aminotransferase 21 IU/L (<35); Albumin 3.8 g/dL (3.5-5.0); Albumin Globulin Ratio 1.3 (1.0-2.8); Alkaline Phosphatase 59 U/L (38-126); Aspartate Aminotransferase 26 IU/L (14-36); BUN Creatinine Ratio 7.1 (6-22); Bilirubin Total 0.3 mg/dL (0.2-1.3); Blood Urea Nitrogen 4 mg/dL (7-17); Calcium 8.7 mg/dL (8.4-10.2); Carbon Dioxide 25 mmol/L (22-32); Chloride 103 mmol/L (98-107); Estimated Glomerular Filt Rate > 60 mL/min (>60); Globulin 2.9 g/dL (1.7-4.1); Glucose 107 mg/dL (70-100); HEMOLYSIS < 15 (0-50); Potassium 4.3 mmol/L (3.4-5.1); Sodium 134 mmol/L (137-145); Total Protein 6.7 g/dL (6.3-8.2)
[2023-06-03 08:00] VITALS: BP 146/93; PULSE 66; RESP 17; TEMP 36.2; O2SAT 97
[2023-06-03] MEDS: SODIUM CHLORIDE 0.9% FLUSH 10 ML IV (08:13)
[2023-06-03] MEDS: LORazepam 1 MG TABLET PO (08:15)
[2023-06-03] MEDS: MULTIVITAMIN 1 TABLET 1 TAB PO (08:15)
[2023-06-03] MEDS: FOLIC ACID 1 MG TABLET PO (08:15)
[2023-06-03] MEDS: lamoTRIgine 100 MG TABLET 50 MG PO (08:16)
[2023-06-03] MEDS: THIAMINE 100 MG TABLET PO (08:16)
[2023-06-03] MEDS: PANTOPRAZOLE 40 MG VIAL IV (08:16)
[2023-06-03 08:45] VITALS: BP 146/93; PULSE 89; RESP 16
[2023-06-03] MEDS: HYDRALAZINE 10 MG TABLET PO (09:07)
[2023-06-03 11:00] VITALS: BP 146/93; PULSE 89
--- NOTE | 2023-06-03 12:40 | PM.PN.1 ---
Subjective Subjective Interval history: Patient requiring medication for tremors this morning. Has had elevated blood pressure as well. Initiated a as needed dose for blood pressure elevation. Patient given a note to delay her interview that she was going to have for a new job today and apparently the place of employment is very understanding. Patient pleased with this. No new complaints. Still only able to tolerate clear fluids and jello. Not ready to increase diet as of yet. Exam Vital Signs (past 8 hours): - 06/03/23 08:45 06/03/23 11:00 06/03/23 08:00 Temperature 97.1 F L Pulse Rate 89 89 66 Respiratory Rate 16 17 Blood Pressure 146/93 H 146/93 H 146/93 H Pulse Oximetry 97 Oxygen Flow Rate 0 Oxygen Delivery Method Room Air Oxygen Flow Rate 0 Narrative Exam Narrative: GEN: well nourished, female, alert and oriented x 3 HEENT: Atraumatic, pupils are equal round reactive to light, extraocular movements are intact HEART:? Tachycardia settling but regular rate and rhythm without murmur, clicks, rubs.? Pulses are equal in upper and lower extremities LUNGS:Lungs clear to auscultation, no wheezes, rales, crackles, chest moves symmetrically, no tachypnea.? No accessory muscle use. ABD:bowel sounds normal, soft, non-tender, no guarding, rebound, rigidity, no masses noted, no hepatosplenomegaly, nondistended.? Patient is actively vomiting clear liquid been evaluated. :No CVA tenderness MSCL: Non-tender, no muscle atrophy, muscles strength 5/5 upper and lower extremities, full range of motion, normal gait NEURO:CN 2-12 intact, sensation normal. SKIN:? No rash, erythema or other skin changes. Objective Labs 06/03/23 06:45 06/03/23 06:45 Labs: Laboratory Results - last 24 hr 06/02/23 06/02/23 06/02/23 12:11 13:30 13:30 WBC RBC Hgb Hct MCV MCH MCHC RDW Plt Count Neut % (Auto) Lymph % (Auto) [place] % (Auto) Eos % (Auto) Baso % (Auto) Neut # (Auto) Lymph # (Auto) [place] # (Auto) Eos # (Auto) Baso # (Auto) Sodium 138 Potassium 3.1 L Chloride 101 Carbon Dioxide 23 BUN 11 Creatinine 0.78 Estimated GFR > 60 BUN/Creatinine Ratio 14.1 Glucose 162 H Lactate 4.1 H* Calcium 8.5 Total Bilirubin AST ALT Alkaline Phosphatase Total Protein Albumin Globulin Albumin/Globulin Ratio Procalcitonin Urine Color Urine Appearance Urine pH Ur Specific [place] Urine Protein Urine Glucose (UA) Urine Ketones Urine Occult Blood Urine Nitrate Urine Bilirubin Urine Urobilinogen Ur Leukocyte Esterase Urine RBC Urine WBC Ur Squamous Epith Cells Urine Bacteria Ur Culture Indicated? Blood Type B Positive Antibody Screen Negative 06/02/23 06/03/23 06/03/23 15:30 06:45 06:45 WBC 9.7 RBC 3.88 L Hgb 12.3 Hct 35.6 L MCV 91.8 MCH 31.7 MCHC 34.5 RDW 14.1 Plt Count 319 Neut % (Auto) 73.3 Lymph % (Auto) 18.4 L [place] % (Auto) 7.2 Eos % (Auto) 0.5 L Baso % (Auto) 0.6 Neut # (Auto) 7100 H Lymph # (Auto) 1800 [place] # (Auto) 700 Eos # (Auto) 0 Baso # (Auto) 100 Sodium 134 L Potassium 4.3 D Chloride 103 Carbon Dioxide 25 BUN 4 L Creatinine 0.56 Estimated GFR > 60 BUN/Creatinine Ratio 7.1 Glucose 107 H Lactate Calcium 8.7 Total Bilirubin 0.3 AST 26 ALT 21 Alkaline Phosphatase 59 Total Protein 6.7 Albumin 3.8 Globulin 2.9 Albumin/Globulin Ratio 1.3 Procalcitonin 0.10 Urine Color Yellow Urine Appearance Clear Urine pH 8.5 H Ur Specific [place] 1.010 Urine Protein Negative Urine Glucose (UA) Trace H Urine Ketones 1+ H Urine Occult Blood Negative Urine Nitrate Negative Urine Bilirubin Negative Urine Urobilinogen 0.2 Ur Leukocyte Esterase Negative Urine RBC None seen Urine WBC None seen Ur Squamous Epith Cells 1-5 /hpf Urine Bacteria Few (2-10) H Ur Culture Indicated? Cult not indicated Blood Type Antibody Screen 06/03/23 06:45 WBC RBC Hgb Hct MCV MCH MCHC RDW Plt Count Neut % (Auto) Lymph % (Auto) [place] % (Auto) Eos % (Auto) Baso % (Auto) Neut # (Auto) Lymph # (Auto) [place] # (Auto) Eos # (Auto) Baso # (Auto) Sodium Potassium Chloride Carbon Dioxide BUN Creatinine Estimated GFR BUN/Creatinine Ratio Glucose Lactate 0.7 Calcium Total Bilirubin AST ALT Alkaline Phosphatase Total Protein Albumin Globulin Albumin/Globulin Ratio Procalcitonin Urine Color Urine Appearance Urine pH Ur Specific [place] Urine Protein Urine Glucose (UA) Urine Ketones Urine Occult Blood Urine Nitrate Urine Bilirubin Urine Urobilinogen Ur Leukocyte Esterase Urine RBC Urine WBC Ur Squamous Epith Cells Urine Bacteria Ur Culture Indicated? Blood Type Antibody Screen PFSH Family History Family/Other Bipolar 1 disorder, depressed Social History household members: significant other Smoking Status: Current every day smoker alcohol intake: current additional social history: SUBSTANCE USE HISTORY - Tobacco: Daily smoker - Alcohol: The patient's mother reports a history of alcohol abuse in the past, recent history is unclear - Drugs: The patient to be does apparently have a past history of use of ecstasy and mushrooms when she was an adolescent, or in her early 20s, but patient, mother, and boyfriend all deny that she currently uses any drugs except for marijuana. DEVELOPMENTAL AND SOCIAL HISTORY - Family Constellation/Environment: Patient was born [place] in this region and patient's mother notes a generally unremarkable childhood. - Childhood Trauma: No apparent history of physical or sexual abuse or witnessing violence. - Developmental milestones: The patient reached normal developmental milestones. - Education: The patient was an adequate student in school and graduated from high school. - Employment: The patient has been employed regularly in the last several years and was recently changing jobs. - Relationships: Patient has been in a long-term relationship with her current boyfriend - Current Living: Patient her boyfriend currently live on [address]. - Support: Income from employment. - Legal: No current legal difficulties. HISTORY - None. - Deployments: N/A - Combat Exposure: N/A - Blast Exposure: N/A SIGNIFICANT MEDICAL HISTORY PCP: Unknown - Allergies: NKDA - Medical Problems: None known - Current Medications: See list above. - Herbals/Supplements: None. Assessment & Plan Assessment & Plan narrative: 1. Excessive drinking while taking Antabuse.? Is wishing to stop drinking, have consulted social work to help with finding available programs for the patient. Social work has begun engaging with the patient. 2. Hypokalemia.? KCL rider given in the ER with some improvement to potassium now of 3.1.? Post supplementation, today potassium is 4.3. Continue to follow. 3. Vomiting.? Appears to have subsided with current treatment.? Continue clear fluids only and provide antiemetic medication as needed.? In ER at the end of profuse vomiting the patient had some tinge of coffee grains in vomitus.? Concern for alcoholic gastritis.? Treat with initial dose of Protonix 80 mg IV followed by Protonix 40 mg IV b.i.d. Continue Protonix 40 mg IV b.i.d. Transition to oral medications once able to tolerate more food intake. 4. SIRS (systemic inflammatory response syndrome).? Elevated white blood count.? Elevated lactic acid.? Associated tachycardia.? Fluid resuscitation provided in the ER with approximately 3 L.? Provide continued intravenous fluids.? Blood cultures pending.? Ceftriaxone 2 g IV daily. 5. Tachycardia.? Has subsided, 89 currently.? Disontinue to provide intravenous fluids and monitor heart rate.? Telemetry monitoring. 6. Mood disorder.? Continue patient's current medication which include gabapentin, trazodone and lamotrigine. 7. Alcohol use disorder.? Once patient stabilizes restart Antabuse. Antabuse started today. 8. Alcohol withdrawal with CIWA protocol. Continue. Quality VTE Deep Vein Thrombosis/Pulmonary Embolism Present on Admission: No
[2023-06-03 14:22] VITALS: BP 137/97; PULSE 89; RESP 17; TEMP 36.2; O2SAT 99
--- NOTE | 2023-06-03 14:41 | CM.DANOTE ---
Patient is a 28 yo female who was admitted on 06/02/23 for High BP, n/v. Pt has [employer] and [facility] for insurance and her PCP is Irma Barreto at [facility]. EMR was reviewed. Per MD, pt with a hx of current ETOH abuse, bipolar do, and uses antabuse at baseline but continues to drink fairly heavily and admitted for orthostatics and nausea/vomiting and potassium issues. SW met bedside with pt and her parents and explained role and pt confirms she is agreeable with parents being in the room for d/c discussion and questions. Pt somewhat vague in her answers and brief with information but confirms she lives on [address] with her boyfriend Raúl (although they are currently on ofelia terms) and pt is independent at baseline and drives and has her own vehicle. Pt confirms she is currently employed but is seeking additional employment and has an interview at the [employer] [facility] this afternoon at 1400. MD and parents trying to encourage pt to reschedule the interview and remain at the hospital until medically stable to discharge. Pt states her PCP is Irma Barreto at [facility] and that she attempted ETOH tx last year through [facility] but was only once a week virtual meeting that pt did not feel was helpful. Pt confirms that she is not established with a mental health provider or counselor and that Irma Barreto prescribes her Antabuse and bipolar medication. Pt denies any current depression or S.I. Pt somewhat interested in ETOH tx and SW provided list of [facility] tx agencies and then discussed [place] and options for Medication Assisted Tx and pt seems fairly interested in this and SW encouraged her and parents to call and determine when they have intakes available and if first come/first serve. Pt appreciative but guarded and contemplative about tx. Pt does not anticipate any further needs at d/c. Parents state they are flying out of town tomorrow and pt can stay at their house if needed if she is not getting along with her boyfriend. Plan: SW to follow for plan of likely d/c home today vs tomorrow pending labs and pt has ETOH resources and options to f/u on after discharge. SW to follow for any further identified discharge planning needs. COOKIE Rawls Discharge Planning/Care Management CM Discharge Assessment Start: 06/03/23 14:36 Freq: Status: Active Protocol: Document 06/03/23 14:36 BF (Rec: 06/03/23 14:41 BF [id number]) Discharge Planning Assessment Assigned Journal Entry Audit Clerk COOKIE Luke DPOA/Assigned Designee Name informally parents Advance Directives? No Advance Directives on File No History Provided By Patient,Family Member,Medical Record Has Patient been admitted in last 30 No days? Prior Living Arrangements House Household Members significant other Type of transporation used prior to Drives own vehicle admit Independent with ADL's Yes Is patient alert and oriented? Yes Caregiver for Another No Patient/Family Preference Drug/Alcohol Rehab Barriers to Discharge No Discharge Plan Home Transportation Arrangement Likely family or sig other Referrals Initiated Other Additional Comment provided ETOH resources and information Whiteboard Updated in Patient Room with Yes name and ext. # of Journal Entry Audit Clerk Review Status In Process Please Provide Date Initial DC 06/03/23 Assessment Was Performed Next Review Type Continued Stay Review
[2023-06-03] MEDS: cefTRIAXone 2,000 MG in SODIUM CHLORIDE 0.9% 100 ML 200 MG IV (15:57)
--- NOTE | 2023-06-03 16:48 | PM.DS.1 ---
History of Present Illness History of Present Illness Date Patient Seen: 06/03/23 Chief complaint: high bp, vomiting per pt Narrative: Patient is eager to go home feeling that she can tolerate her current symptoms. Has information for alcohol rehab services in the community and wishes to select a service after going home. Discharge Providers Provider Date of admission: 06/02/23 14:14 Discharge Date: 06/03/23 Primary care physician: Doctor Sakina MD Consults: 06/02/23 16:18 Consult to [facility] - Divinity Teacher Routine Comment: Assess with alcohol rehab/community program Discharge provider: Kaylyn Palomo MD Summary Hospital Course Discharge Diagnosis: Excessive drinking while taking Antabuse, acute and present on admission Hypokalemia, acute and present on admission Vomiting, acute and present on admission Alcoholic gastritis, acute and present on admission SIRS (systemic inflammatory response syndrome) acute and present on admission. Elevated white blood count.? Elevated lactic acid.? Associated tachycardia.? Fluid resuscitation provided in the ER with approximately 3 L.? Tachycardia acute and present on admission Mood disorder.? Chronic and present on admission Alcohol use disorde, chronic and present on admission Alcohol withdrawal, acute and present on admission Daily smoker, chronic and present on admission Hospital Course: Aruna Street is a 28-year-old female with history of alcohol abuse, bipolar disorder with complaint of nausea and vomiting and fast heart rate.? Patient stated she drank a lot of alcohol last night she does sometimes have persistent nausea and vomiting afterwards.? She denied fevers, but she has been very sweaty.? She stated she does have a headache, she denied chest pain, denied shortness of breath.? She did have some abdominal pain, stated she started throwing up today.? She has not had any diarrhea constipation that she is aware of.? No dysuria urgency or frequency.? No back or flank pain.? She stated she has had fast heart rate in the past when she is throwing up.? No syncope.? She takes Antabuse, trazodone, gabapentin and lamotrigine.? She stated this is for alcohol use, mood disorder, no seizure history.? Patient denied any prior surgeries.? She does use tobacco daily, she does drink regularly.? She does use marijuana she did smoke this morning prior to arrival.? She denied other recreational substances.? Patient stated she took her Antabuse yesterday.? She stated that she drinks most days.? Initially, the patient had leukocytosis, thrombocytosis, hypokalemia, elevated lactic acid, elevated alcohol level (102) hypotension and tachycardia. She required over 3 L of intravenous fluid resuscitation. On admission, there was a concern for sepsis and blood cultures were obtain. The patient was placed on ceftriaxone 2 g IV daily. Prior to discharge blood cultures were proven negative and ceftriaxone was discontinued. With fluid replacement, lactic acid returned to normal and hypotension and tachycardia were corrected. Following correction there was some episodic hypertension that required treatment with hydralazine 10 mg as needed. Patient was placed on CIWA but had minimal symptoms. Time of discharge patient's CIWA score was 1. On discharge patient will continue the thiamine 100 mg for 5 further days. As well she will continue her Ativan use, trazodone, gabapentin and lamotrigine. Social work provided the patient with services within the community that she can connect with for alcohol rehab support. Patient is intending to select a service to help her with this. Status at Discharge Cognitive/behavioral status at discharge: at baseline, oriented Functional status at discharge: independent ambulation Overall status at discharge: patient is progressing back to baseline Time Spent with Patient Time spent: Greater than 30 minutes Exam Vital Signs (past 8 hours): - 06/03/23 11:00 06/03/23 14:22 Temperature 97.1 F L Pulse Rate 89 89 Respiratory Rate 17 Blood Pressure 146/93 H 137/97 H Pulse Oximetry 99 Oxygen Flow Rate 0 Oxygen Delivery Method Room Air Oxygen Flow Rate 0 Narrative Exam Narrative: GEN: well nourished, female, alert and oriented x 3 HEENT: Atraumatic, pupils are equal round reactive to light, extraocular movements are intact HEART: regular rate and rhythm without murmur, clicks, rubs.? Pulses are equal in upper and lower extremities LUNGS:Lungs clear to auscultation, no wheezes, rales, crackles, chest moves symmetrically, no tachypnea.? No accessory muscle use. ABD:bowel sounds normal, soft, non-tender, no guarding, rebound, rigidity, no masses noted, no hepatosplenomegaly, nondistended :No CVA tenderness MSCL: Non-tender, no muscle atrophy, muscles strength 5/5 upper and lower extremities, full range of motion, normal gait NEURO:CN 2-12 intact, sensation normal. SKIN:? No rash, erythema or other skin changes. Objective Labs 06/03/23 06:45 06/03/23 06:45 Labs: Laboratory Results - last 24 hr 06/02/23 06/03/23 06/03/23 15:30 06:45 06:45 WBC 9.7 RBC 3.88 L Hgb 12.3 Hct 35.6 L MCV 91.8 MCH 31.7 MCHC 34.5 RDW 14.1 Plt Count 319 Neut % (Auto) 73.3 Lymph % (Auto) 18.4 L [place] % (Auto) 7.2 Eos % (Auto) 0.5 L Baso % (Auto) 0.6 Neut # (Auto) 7100 H Lymph # (Auto) 1800 [place] # (Auto) 700 Eos # (Auto) 0 Baso # (Auto) 100 Sodium 134 L Potassium 4.3 D Chloride 103 Carbon Dioxide 25 BUN 4 L Creatinine 0.56 Estimated GFR > 60 BUN/Creatinine Ratio 7.1 Glucose 107 H Lactate Calcium 8.7 Total Bilirubin 0.3 AST 26 ALT 21 Alkaline Phosphatase 59 Total Protein 6.7 Albumin 3.8 Globulin 2.9 Albumin/Globulin Ratio 1.3 Procalcitonin 0.10 Urine Color Yellow Urine Appearance Clear Urine pH 8.5 H Ur Specific [place] 1.010 Urine Protein Negative Urine Glucose (UA) Trace H Urine Ketones 1+ H Urine Occult Blood Negative Urine Nitrate Negative Urine Bilirubin Negative Urine Urobilinogen 0.2 Ur Leukocyte Esterase Negative Urine RBC None seen Urine WBC None seen Ur Squamous Epith Cells 1-5 /hpf Urine Bacteria Few (2-10) H Ur Culture Indicated? Cult not indicated 06/03/23 06:45 WBC RBC Hgb Hct MCV MCH MCHC RDW Plt Count Neut % (Auto) Lymph % (Auto) [place] % (Auto) Eos % (Auto) Baso % (Auto) Neut # (Auto) Lymph # (Auto) [place] # (Auto) Eos # (Auto) Baso # (Auto) Sodium Potassium Chloride Carbon Dioxide BUN Creatinine Estimated GFR BUN/Creatinine Ratio Glucose Lactate 0.7 Calcium Total Bilirubin AST ALT Alkaline Phosphatase Total Protein Albumin Globulin Albumin/Globulin Ratio Procalcitonin Urine Color Urine Appearance Urine pH Ur Specific [place] Urine Protein Urine Glucose (UA) Urine Ketones Urine Occult Blood Urine Nitrate Urine Bilirubin Urine Urobilinogen Ur Leukocyte Esterase Urine RBC Urine WBC Ur Squamous Epith Cells Urine Bacteria Ur Culture Indicated? PFSH Family History Family/Other Bipolar 1 disorder, depressed Social History household members: significant other Smoking Status: Current every day smoker alcohol intake: current additional social history: SUBSTANCE USE HISTORY - Tobacco: Daily smoker - Alcohol: The patient's mother reports a history of alcohol abuse in the past, recent history is unclear - Drugs: The patient to be does apparently have a past history of use of ecstasy and mushrooms when she was an adolescent, or in her early 20s, but patient, mother, and boyfriend all deny that she currently uses any drugs except for marijuana. DEVELOPMENTAL AND SOCIAL HISTORY - Family Constellation/Environment: Patient was born [place] raised in this region and patient's mother notes a generally unremarkable childhood. - Childhood Trauma: No apparent history of physical or sexual abuse or witnessing violence. - Developmental milestones: The patient reached normal developmental milestones. - Education: The patient was an adequate student in school and graduated from high school. - Employment: The patient has been employed regularly in the last several years and was recently changing jobs. - Relationships: Patient has been in a long-term relationship with her current boyfriend - Current Living: Patient her boyfriend currently live on [address]. - Support: Income from employment. - Legal: No current legal difficulties. HISTORY - None. - Deployments: N/A - Combat Exposure: N/A - Blast Exposure: N/A SIGNIFICANT MEDICAL HISTORY PCP: Unknown - Allergies: NKDA - Medical Problems: None known - Current Medications: See list above. - Herbals/Supplements: None. Discharge Plan Discharge Plan Patient Disposition: Home Provider Discharge Comment: Patient organized on her own a alcohol rehab support system for herself. She has been given information by the social media specialist. Discharge orders & Medications Prescriptions: New thiamine mononitrate (vit B1) 100 mg Tablet 100 mg PO DAILY Qty: 5 0RF multivitamin with folic acid [Tab-A-Madai] 400 mcg Tablet 1 tab PO DAILY Qty: 30 0RF pantoprazole [Protonix] 40 mg tablet,delayed release (DR/EC) 40 mg PO BID Qty: 60 0RF hydroxyzine pamoate [Vistaril] 25 mg capsule 25 mg PO QID PRN (Reason: anxiety/agitation) Qty: 100 0RF Rx Instructions: As needed anxiety or agitation. Continued disulfiram 250 mg tablet 500 mg PO DAILY gabapentin 600 mg tablet 600 mg PO 3XD PRN (Reason: insomnia) lamotrigine 25 mg tablet 50 mg PO DAILY trazodone 100 mg tablet 200 mg PO ONCE PM PRN (Reason: insomnia) Follow up/Referrals: Sakina,Doctor, MD [Primary Care Provider] - Visit Report/Discharge Packet Instructions: Pantoprazole, Hydroxyzine, Hydroxyzine (By mouth) Stand Alone Forms: Patient Portal/API, Stroke Signs & Symptoms Discharge Data Primary Care Provider: Doctor Sakina Quality VTE Deep Vein Thrombosis/Pulmonary Embolism Present on Admission: No
== END 2023-06-03 17:09 | disposition home or self-care (01) | DRG 775 ==
LOC: ED 10:59 → AC 14:18
PROVIDERS: Admitting Provider Neuromusculoskeletal Medicine, Sports Medicine; Emergency Provider Emergency Medicine; Referring Provider Emergency Medicine; Visit Provider Neuromusculoskeletal Medicine, Sports Medicine
DX: F10.239 Alcohol dependence with withdrawal, unspecified (principal); K29.20 Alcoholic gastritis without bleeding; E87.6 Hypokalemia; F39 Unspecified mood [affective] disorder; R65.10 Systemic inflammatory response syndrome (SIRS) of non-infectious origin without acute organ dysfunction; G47.00 Insomnia, unspecified; Y90.5 Blood alcohol level of 100-119 mg/100 ml; Z79.899 Other long term (current) drug therapy
CPT/HCPCS: 36415; 71045; 71275; 74177; 80048; 80053; 80320; 81001; 82009; 82550; 82805; 82962; 83605; 83880; 84145; 84484; 84703; 85025; 85379; 85610; 85730; 86850; 86900; 86901; 87040; 93005; 96365; 96366; 96375; 99284; 99291; C9113; J0696; J1630; J2060; J2405; Q9967

== ENCOUNTER 2025-06-13 13:27 | Emergency (ER) | payer OTHER, SELFPAY ==
[2023-06-02 14:22] VITALS: BMI 23.1
[2025-06-13] VITALS (17 sets, daily range): BP systolic 113–162; BP diastolic 71–118; PULSE 80–139; RESP 16–24; TEMP 36.1; O2SAT 92–98; BMI 22.3
[2025-06-13] MEDS: ONDANSETRON 4 MG/2 ML INJ IV (13:53)
[2025-06-13 14:00] LABS: Add Manual Diff / Slide Review NO; Hematocrit 43.1 % (36-46); Hemoglobin 14.9 g/dL (12.0-16.0); Lymphocytes Absolute Auto 3900 /uL (1100-4500); Mean Corpuscular HGB Conc 34.6 % (30-36); Mean Corpuscular Hemoglobin 31.5 PG (26-34); Mean Corpuscular Volume 91.2 fL (80-100); Platelet Count 387 X10^3/uL (150-400)
--- NOTE | 2025-06-13 14:04 | EKG_ITS ---
[address] [address] Test Date: 2025-06-13 Pat Name: Zohreh Street Department: [facility] Room: Gender: Female Cashier Assistant: PAM : 1995 Requested By: Order Number: [id number] Reading MD: Srini Chambers Measurements Intervals [place] Rate: 111 P: 50 W[place]: 156 QRS: 70 QRSD: 90 T: 37 QT: 352 QTc: 478 Interpretive Statements Sinus tachycardia Electronically Signed On 06-25-2025 8:44:53 PDT by Srini Chambers
[2025-06-13 14:22] LABS: Lipase 160 U/L (23-300)
[2025-06-13 14:23] LABS: Alanine Aminotransferase 38 IU/L (<35); Albumin 4.6 g/dL (3.5-5.0); Albumin Globulin Ratio 1.5 (1.0-2.8); Alkaline Phosphatase 73 U/L (38-126); Blood Urea Nitrogen 18 mg/dL (7-17); Calcium 9.8 mg/dL (8.4-10.2); Carbon Dioxide 18 mmol/L (22-32); Chloride 107 mmol/L (98-107); Estimated Glomerular Filt Rate > 60 mL/min (>60); Globulin 3.0 g/dL (1.7-4.1); Glucose 125 mg/dL (70-99); HEMOLYSIS 23 (0-50); Magnesium 1.7 mg/dL (1.6-2.3); Potassium 3.3 mmol/L (3.4-5.1); Sodium 139 mmol/L (137-145); Total Protein 7.6 g/dL (6.3-8.2)
[2025-06-13 14:27] LABS: Ethanol (ETOH) 34 mg/dL (<10)
--- NOTE | 2025-06-13 16:39 | ED.NAVMDI ---
HPI - Nausea/Vomiting/Diarrhea General Chief complaint: Nausea/Vomiting/Diarrhea Stated complaint: Nausea, vomiting Time Seen by Provider: 06/13/25 13:42 Source: patient Mode of arrival: Ambulatory History of Present Illness HPI Narrative: 30 years old female with history of alcohol use disorder came in today complaining of nausea vomiting, shortness of breath since this morning without fever, chest pain, abdominal pain, diarrhea, constipation, urine problem, leg pain, leg swelling, chills, history of blood clot. She reported history of alcohol withdrawal seizure and DT in the past. Related Data Home Medications ?Medication ?Instructions ?Recorded ?Confirmed lamotrigine 25 mg tablet 50 mg PO DAILY 06/02/23 03/01/25 clonidine HCl 0.1 mg tablet 0.1 mg PO BID 03/01/25 03/01/25 disulfiram 500 mg tablet 500 mg PO QAM 03/01/25 03/01/25 hydroxyzine pamoate 50 mg capsule 50 mg PO 4XD PRN anxiety 03/01/25 03/01/25 lithium carbonate 300 mg capsule mg PO 03/01/25 03/01/25 olanzapine 15 mg-samidorphan 10 mg 1 tab PO DAILY 03/01/25 03/01/25 tablet (Lybalvi) trazodone 50 mg tablet 50 mg PO ONCE PM 03/01/25 03/01/25 Previous Rx's ?Medication ?Instructions ?Recorded multivitamin with folic acid 400 1 tab PO DAILY #30 tabs 06/03/23 mcg tablet (Tab-A-Madai) thiamine mononitrate (vit B1) 100 100 mg PO DAILY #5 tabs 06/03/23 mg tablet ondansetron 4 mg disintegrating 4 mg PO Q6H PRN nausea and 06/13/25 tablet vomiting #20 tabs Allergies Allergy/AdvReac Type Severity Reaction Status Date / Time No Known Drug Allergies Allergy Verified 06/13/25 13:30 Review of Systems Review of Systems Narrative: Positive for nausea vomiting, shortness of breath. Negative for fever, chest pain, abdominal pain, diarrhea, constipation, urine problem, leg pain, leg swelling, chills, history of blood clot. Patient History Family History Family/Other Bipolar 1 disorder, depressed Social History household members: significant other Smoking Status: Current every day smoker alcohol intake: current additional social history: SUBSTANCE USE HISTORY - Tobacco: Daily smoker - Alcohol: The patient's mother reports a history of alcohol abuse in the past, recent history is unclear - Drugs: The patient to be does apparently have a past history of use of ecstasy and mushrooms when she was an adolescent, or in her early 20s, but patient, mother, and boyfriend all deny that she currently uses any drugs except for marijuana. DEVELOPMENTAL AND SOCIAL HISTORY - Family Constellation/Environment: Patient was [place] region and patient's mother notes a generally unremarkable childhood. - Childhood Trauma: No apparent history of physical or sexual abuse or witnessing violence. - Developmental milestones: The patient reached normal developmental milestones. - Education: The patient was an adequate student in school and graduated from high school. - Employment: The patient has been employed regularly in the last several years and was recently changing jobs. - Relationships: Patient has been in a long-term relationship with her current boyfriend - Current Living: Patient her boyfriend currently live on [facility]. - Support: Income from employment. - Legal: No current legal difficulties. HISTORY - None. - Deployments: N/A - Combat Exposure: N/A - Blast Exposure: N/A SIGNIFICANT MEDICAL HISTORY PCP: Unknown - Allergies: NKDA - Medical Problems: None known - Current Medications: See list above. - Herbals/Supplements: None. Smoking Status: Current every day smoker tobacco type: cigarettes alcohol intake frequency: 0-2 drinks per day Alcohol type: hard liquor Exam Narrative Exam Narrative: GENERAL: Cooperative. No acute distress. HEAD: Atraumatic. Normocephalic. NECK: Trachea midline. Non tender CARDIOVASCULAR: Tachycardia. Regular Rhythm without murmurs, gallops, or rubs. RESPIRATORY: Clear to auscultation. Breath sounds equal bilaterally. No wheezes, rales, or rhonchi. GASTROINTESTINAL: Abdomen soft, non-tender, nondistended. EXTREMITIES: No edema or joint tenderness. BACK: Nontender without deformity or crepitance. No flank tenderness. NEURO: AOx3. SKIN: No rash or erythema of visible areas Initial Vital Signs Initial Vital Signs: Vital Signs Temperature 97 F L 07/27/25 13:30 Pulse Rate 139 H 06/13/25 13:30 Respiratory Rate 17 06/13/25 13:30 Blood Pressure 113/71 06/13/25 13:30 Pulse Oximetry 98 06/13/25 13:30 Oxygen Delivery Method Room Air 06/13/25 13:30 Course Orders Ordered: Discontinued Medications Potassium Chloride/Sodium Chloride (Ns With Kcl 20 Meq) 1,000 mls @ 500 mls/hr IV NOW ONE Stop: 06/13/25 17:52 Last Admin: 06/13/25 16:29 Dose: Not Given Documented By: LOBITO Potassium Chloride 20 meq/ (Sodium Chloride) 1,010 mls @ 500 mls/hr IV NOW ONE Stop: 06/13/25 18:31 Potassium Chloride 20 meq/ (Sodium Chloride) 1,010 mls @ 500 mls/hr IV NOW ONE Stop: 06/13/25 19:01 Last Infusion: 06/13/25 19:19 Dose: Infused Documented By: LOBITO Co-signed By: ARIEL Admin: 06/13/25 17:09 Dose: 500 mls/hr Documented By: LOBITO Co-signed By: ZO Ondansetron HCl (Ondansetron 4 Mg/2 Ml Inj) 4 mg IV NOW ONE Stop: 06/13/25 13:44 Last Admin: 06/13/25 13:53 Dose: 4 mg Documented By: MIKE Phenobarbital (Phenobarbital 65 Mg/Ml Vial) 260 mg IV NOW ONE Stop: 06/13/25 13:43 Last Admin: 06/13/25 13:53 Dose: 260 mg Documented By: MIKE Phenobarbital (Phenobarbital 65 Mg/Ml Vial) 130 mg IV NOW ONE Stop: 06/13/25 16:36 Last Admin: 06/13/25 16:51 Dose: 130 mg Documented By: LOBITO Phenobarbital (Phenobarbital 65 Mg/Ml Vial) 260 mg IV NOW ONE Stop: 06/13/25 16:40 Last Admin: 06/13/25 18:06 Dose: Not Given Documented By: LOBITO Vital Signs Vital signs: Vital Signs - 8 hr 06/13/25 13:30 06/13/25 13:49 06/13/25 13:50 Temperature 97 F L Pulse Rate 139 H 118 H 118 H Respiratory Rate 17 23 22 Blood Pressure 113/71 Pulse Oximetry 98 Oxygen Delivery Method Room Air 06/13/25 13:50 06/13/25 14:00 06/13/25 14:00 Temperature Pulse Rate 113 H Respiratory Rate 22 Blood Pressure 132/79 137/86 Pulse Oximetry 96 Oxygen Delivery Method 06/13/25 14:30 06/13/25 14:30 06/13/25 14:30 Temperature Pulse Rate 122 H 122 H Respiratory Rate 22 22 Blood Pressure 153/97 H Pulse Oximetry 96 96 Oxygen Delivery Method 06/13/25 15:03 06/13/25 15:13 06/13/25 15:13 Temperature Pulse Rate 124 H 114 H Respiratory Rate 23 24 Blood Pressure 148/100 H Pulse Oximetry 96 96 Oxygen Delivery Method 06/13/25 15:14 06/13/25 15:30 06/13/25 15:30 Temperature Pulse Rate 113 H Respiratory Rate 23 Blood Pressure 148/100 H 157/108 H Pulse Oximetry 97 Oxygen Delivery Method 06/13/25 16:00 06/13/25 16:00 06/13/25 16:30 Temperature Pulse Rate 111 H Respiratory Rate 23 Blood Pressure 162/106 H 162/118 H Pulse Oximetry 96 Oxygen Delivery Method 06/13/25 16:30 06/13/25 17:08 06/13/25 17:13 Temperature Pulse Rate 119 H 109 H Respiratory Rate 22 Blood Pressure 159/109 H Pulse Oximetry 98 92 Oxygen Delivery Method 06/13/25 17:13 06/13/25 17:30 06/13/25 17:30 Temperature Pulse Rate 100 H 84 Respiratory Rate Blood Pressure 147/93 H Pulse Oximetry 94 93 Oxygen Delivery Method 06/13/25 18:00 06/13/25 18:00 Temperature Pulse Rate 105 H Respiratory Rate 16 Blood Pressure 140/98 H Pulse Oximetry 97 Oxygen Delivery Method MDM - Nausea/Vomiting/Diarrhea Lab Data 06/13/25 13:50 06/13/25 13:50 Labs: Lab Results 06/13/25 Range/Units 13:50 WBC 15.3 H (4.5-11.0) X10^3/uL RBC 4.73 (4.0-5.2) X10^6/uL Hgb 14.9 (12.0-16.0) g/dL Hct 43.1 (36-46) % MCV 91.2 (80-100) fL MCH 31.5 (26-34) PG MCHC 34.6 (30-36) % RDW 13.8 (11.6-14.8) % Plt Count 387 (150-400) X10^3/uL Neut % (Auto) 66.7 (50-75) % Lymph % (Auto) 25.6 (25-40) % [place] % (Auto) 6.4 (3-14) % Eos % (Auto) 0.7 L (2-4) % Baso % (Auto) 0.6 (0-2) % Neut # (Auto) 34183 H (7924-9439) /uL Lymph # (Auto) 3900 (1584-6959) /uL [place] # (Auto) 1000 H (0-900) /uL Eos # (Auto) 100 (0-450) /uL Baso # (Auto) 100 (0-100) /uL D-Dimer < 215 (<500) ng/ml Sodium 139 (137-145) mmol/L Potassium 3.3 L (3.4-5.1) mmol/L Chloride 107 (98-107) mmol/L Carbon Dioxide 18 L (22-32) mmol/L BUN 18 H (7-17) mg/dL Creatinine 0.73 (0.52-1.04) mg/dL Estimated GFR > 60 (>60) mL/min BUN/Creatinine Ratio 24.7 H (6-22) Glucose 125 H (70-99) mg/dL Calcium 9.8 (8.4-10.2) mg/dL Magnesium 1.7 (1.6-2.3) mg/dL Total Bilirubin 0.3 (0.2-1.3) mg/dL AST 45 H (14-36) IU/L ALT 38 H (<35) IU/L Alkaline Phosphatase 73 (38-126) U/L Total Protein 7.6 (6.3-8.2) g/dL Albumin 4.6 (3.5-5.0) g/dL Globulin 3.0 (1.7-4.1) g/dL Albumin/Globulin Ratio 1.5 (1.0-2.8) Lipase 160 (23-300) U/L Ethyl Alcohol 34 H (<10) mg/dL Point of Care Testing Test Results Negative Urine Dip Bedside Urine Glucose Negative Bedside Urine Bilirubin - Negative Bedside Urine Ketone +/- 5 Urine Specific [place] 1.010 Bedside Urine Occult Blood - Negative Bedside Urine pH 8 Bedside Urine Protein +/- 15 Bedside Urine Urobilinogen - Negative Bedside Urine Nitrite - Negative Bedside Urine Leukocytes - Negative Esterase Imaging Data Chest x-ray: Radiologist's Impression: PROCEDURE: XR CHEST 1V INDICATIONS: Shortness of breath TECHNIQUE: One view of the chest was acquired. COMPARISON: [facility], CR, XR CHEST 1V, 06/02/2023, 11:00. FINDINGS: Surgical changes and devices: None. Lungs and pleura: Lungs are clear. No pleural effusions or pneumothorax. Mediastinum: Mediastinal contours appear normal. Heart size is normal. Bones and chest wall: No suspicious bony lesions. Overlying soft tissues appear unremarkable. IMPRESSION: No acute cardiopulmonary abnormality is seen. Approved by: Ted Fritz M.D. on 06/13/2025 at 16:24 CT scan - abdomen/pelvis: Radiologist's Impression: PROCEDURE: CT ABDOMEN PELVIS W CON INDICATIONS: Nausea vomiting, shortness of breath TECHNIQUE: After the administration of intravenous contrast, axial sections acquired from the lung bases to the pubic symphysis. Coronal and sagittal reformats were performed. For radiation dose reduction, the following was used: automated exposure control, adjustment of mA and/or kV according to patient size. COMPARISON: [facility], CT, CT ABDOMEN PELVIS W CON, 06/02/2023, 12:43. FINDINGS: Image quality: Diagnostic. Lower Chest: No significant findings. Moderate hiatal hernia ABDOMEN: Liver: No solid mass. Gallbladder: No radiopaque gallstones or wall thickening. Biliary ducts: No biliary dilation. Pancreas: No ductal dilation. Spleen: Size is within normal limits. Adrenal Glands: No adrenal nodules. Kidneys and Ureters: No hydronephrosis. No solid mass. No complex renal cystic lesion which requires follow up. Stomach and Bowel: Moderate fecal debris in the colon. Proximal small bowel wall thickening. Normal appendix. Peritoneum: No abnormal intraperitoneal fluid. No free air. Ventral Wall: No significant ventral hernia. Abdominal Nodes: No retroperitoneal or mesenteric adenopathy by size criteria. Vessels: Aorta and inferior vena cava are normal in size. PELVIS: Pelvic Organs: Unremarkable. Physiologic free fluid in the pelvis Bladder: No bladder wall thickening, accounting for underdistention. Pelvic Nodes: No enlarged lymph nodes. Miscellaneous: No inguinal hernias are seen. Bones: No aggressive osseous abnormality. IMPRESSION: Proximal small bowel wall thickening could reflect enteritis in the proper clinical setting. No evidence of bowel obstruction. Moderate fecal debris throughout the colon. MDM Narrative Medical decision making narrative: 30 years old female with history alcohol use disorder came in today complaining of nausea vomiting since this morning without any chest pain, abdominal pain, diarrhea, constipation, urine problem. Her last drink was today. She had history of alcohol withdrawal seizure. Her CV exam showed tachycardia. Her abdominal exam was benign. She alert oriented x4 and answering question appropriately in the ED. he was given phenobarbital, IV fluid, potassium supplement, Zofran and was feeling better. Her tachycardia went down into the 80s. She refused to go to the detox program. Return to the ED precaution was given. Discharge Plan Departure Patient Disposition: Home Clinical Impression: Tachycardia, Hypokalemia, Alcohol use disorder Vomiting Qualifiers: Vomiting type: unspecified Nausea presence: with nausea Qualified Code(s): R11.2 - Nausea with vomiting, unspecified Instructions: DI for Dehydration -- Adult, DI for Vomiting -- Adult Activity Restrictions/Additional Instructions: Please follow-up with your primary care doctor in the next 1-2 weeks. Please come back to the emergency room if any worsening symptoms including but not limited to dehydration, chest pain, shortness of breath, abdominal pain, persistent nausea vomiting. Prescriptions: New ondansetron 4 mg tablet,disintegrating 4 mg PO Q6H PRN (Reason: nausea and vomiting) Qty: 20 0RF No Action Lybalvi 15-10 mg tablet 1 tab PO DAILY lithium carbonate 300 mg capsule PO trazodone 50 mg tablet 50 mg PO ONCE PM clonidine HCl 0.1 mg tablet 0.1 mg PO BID disulfiram 500 mg tablet 500 mg PO QAM hydroxyzine pamoate 50 mg capsule 50 mg PO 4XD PRN (Reason: anxiety) lamotrigine 25 mg tablet 50 mg PO DAILY thiamine mononitrate (vit B1) 100 mg Tablet 100 mg PO DAILY Qty: 5 0RF multivitamin with folic acid [Tab-A-Madai] 400 mcg Tablet 1 tab PO DAILY Qty: 30 0RF Stand Alone Forms: Patient Portal/API
--- NOTE | 2025-06-13 16:49 | DI.RAD.S_ITS ---
PROCEDURE: XR CHEST 1V INDICATIONS: Shortness of breath TECHNIQUE: One view of the chest was acquired. COMPARISON: [facility], , XR CHEST 1V, 06/02/2023, 11:00. FINDINGS: Surgical changes and devices: None. Lungs and pleura: Lungs are clear. No pleural effusions or pneumothorax. Mediastinum: Mediastinal contours appear normal. Heart size is normal. Bones and chest wall: No suspicious bony lesions. Overlying soft tissues appear unremarkable. IMPRESSION: No acute cardiopulmonary abnormality is seen. Approved by: Ted Fritz M.D. on 06/13/2025 at 16:24
--- NOTE | 2025-06-13 16:49 | DI.CT.S_ITS ---
PROCEDURE: CT ABDOMEN PELVIS W CON INDICATIONS: Nausea vomiting, shortness of breath TECHNIQUE: After the administration of intravenous contrast, axial sections acquired from the lung bases to the pubic symphysis. Coronal and sagittal reformats were performed. For radiation dose reduction, the following was used: automated exposure control, adjustment of mA and/or kV according to patient size. COMPARISON: [facility], CT, CT ABDOMEN PELVIS W CON, 06/02/2023, 12:43. FINDINGS: Image quality: Diagnostic. Lower Chest: No significant findings. Moderate hiatal hernia ABDOMEN: Liver: No solid mass. Gallbladder: No radiopaque gallstones or wall thickening. Biliary ducts: No biliary dilation. Pancreas: No ductal dilation. Spleen: Size is within normal limits. Adrenal Glands: No adrenal nodules. Kidneys and Ureters: No hydronephrosis. No solid mass. No complex renal cystic lesion which requires follow up. Stomach and Bowel: Moderate fecal debris in the colon. Proximal small bowel wall thickening. Normal appendix. Peritoneum: No abnormal intraperitoneal fluid. No free air. Ventral Wall: No significant ventral hernia. Abdominal Nodes: No retroperitoneal or mesenteric adenopathy by size criteria. Vessels: Aorta and inferior vena cava are normal in size. PELVIS: Pelvic Organs: Unremarkable. Physiologic free fluid in the pelvis Bladder: No bladder wall thickening, accounting for underdistention. Pelvic Nodes: No enlarged lymph nodes. Miscellaneous: No inguinal hernias are seen. Bones: No aggressive osseous abnormality. IMPRESSION: Proximal small bowel wall thickening could reflect enteritis in the proper clinical setting. No evidence of bowel obstruction. Moderate fecal debris throughout the colon. Approved by: Ted Fritz M.D. on 06/13/2025 at 16:37
[2025-06-13] MEDS: POTASSIUM CHLORIDE 20 MEQ in SODIUM CHLORIDE 0.9% 1,000 ML 500 MEQ IV (17:09)
== END 2025-06-13 19:23 | disposition home or self-care (01) ==
PROVIDERS: Emergency Provider Emergency Medicine
DX: R00.0 Tachycardia, unspecified (principal); E87.6 Hypokalemia; F10.90 Alcohol use, unspecified, uncomplicated; R11.2 Nausea with vomiting, unspecified; R06.02 Shortness of breath
CPT/HCPCS: 36415; 71045; 74177; 80053; 80320; 81003; 81025; 83690; 83735; 85025; 85379; 93005; 96365; 96366; 96375; 96376; 99284; J2405; J2560; J3480; Q9967

== ENCOUNTER → 2025-08-05 16:19 | Outpatient (CLI) | payer OTHER, SELFPAY ==
[2023-06-02 14:22] VITALS: BMI 23.1
[2025-08-05 17:16] LABS: Influenza A - CEPHEID Flu A NEGATIVE (NEGATIVE); Influenza B - CEPHEID Flu B NEGATIVE (NEGATIVE)
[2025-08-05 17:55] LABS: COVID-19 CEPHEID 4-PLEX PCR Negative (Negative)
== END ==
PROVIDERS: Visit Provider Nurse Practitioner Family
DX: J02.9 Acute pharyngitis, unspecified (principal); R05.1 Acute cough
CPT/HCPCS: 87070; 87637